=== PATIENT | female | born 1940 | race Caucasian/White ===

== ENCOUNTER 2016-05-13 17:55 | Emergency (ER) | payer OTHER ==
--- NOTE | 2016-05-13 20:04 | ED CLINICAL REPORT ---
Clinical Report - Physicians/Mid Levels [facility] [address] [place] [address] 05/13/2016 17:55 Patient: TERESA YOU Time Seen: 1758. Arrived- By private vehicle. Historian- patient. HISTORY OF PRESENT ILLNESS Chief Complaint: VOMITING. This started about 3 days ago and is still present but is improving. (Pt states that today, she feels stronger, and has been able to hold down food and liquids, though not as much as usual.). Recent travel- [facility] (Pt just moved up from [place].). She has had nausea and vomiting. No diarrhea, black stools, bloody stools, abdominal pain or constipation. No flank pain, history of possible bad food exposure or known contact with a sick individual. Has not recently been camping or on antibiotics. The illness is described as moderate. (Pt states she moved here from [place] to be near her brother. Pt is renting a room in a house with other people. She states that she normally walks with a walker without difficulty, though yesterday, she had more trouble getting up, because she felt dizzy. She states that today is better. Pt states she sleeps in a recliner, and that a chair with a lift to help her get up will be arriving soon. She states her landlady is also a paid caregiver, and that the landlord also has an mailing machine assistant.). Similar symptoms previously: Occasionally. Recent medical care: ( PT is scheduled to establish care with Dr. Bahena.). Not recently seen/assessed. REVIEW OF SYSTEMS No fever, muscle aches, difficulty with urination, dark urine or headache. No dizziness, sore throat, cough, chest pain or difficulty breathing. No excessive urination, jaundice, back pain, fainting episodes or blurred vision. The patient has had skin rash (Pt has a sore, erythematous area on her R leg.). All systems otherwise negative, except as recorded above. PAST HISTORY Problems: Arrhythmia. Cancer. Asthma. Diverticulitis. Gastroesophageal Reflux Disease. Additional Surgeries: Cardiac Surgery. Lumpectomy of breast. Medications: D55-Xphvum Oral 1000 mcg, Daily. Symbicort Inhalation (Aerosol 160-4.5 mcg/act) 2 puff, two times a day. Warfarin Sodium Oral 4 mg, tablets (1.5 tab on Wednesday 1 Tab Wednesday 1.5 Tab Wednesday 1 Tab 1.5 Tab Wednesday 1 Tab Wednesday 1 Tab Wednesday ). Senna Oral, daily as needed. LORazepam Oral 0.5 mg, daily. Sertraline HCl Oral 50 mg, daily. OLANZapine Oral 2.5 mg, daily. Oxycodone-Acetaminophen Oral 10/325 mg, two tabs every 4 hours as needed. Ranexa Oral 500mg, two times a day. Atorvastatin Calcium Oral 10 mg, 2x a day. Docusate Sodium Oral (Capsule 250 mg) 1 capsule, daily. Metoprolol Tartrate Oral 25 mg, Daily (1/2 tab daily). Folic Acid Oral 1 mg, daily. Amiodarone HCL Oral 200 mg, daily. Donepezil HCl Oral 10mg, Daily. Multi Complete Oral 1 tab, Daily (MVI D3). NIFEdipine Oral 30 mg, daily. Allergies: Sulfa Antibiotics. SOCIAL HISTORY Former smoker. No alcohol use or drug use. ADDITIONAL NOTES The nursing notes have been reviewed. PHYSICAL EXAM Vital Signs: 05/13/2016 18:00 BP: 174/70. HR: 85. RR: 15. O2 saturation: 98%. Temp: 98.4 F. Pain level now: 10/10. Have been reviewed. Appearance: Alert. Oriented X3. No acute distress. Eyes: Pupils equal, round and reactive to light. Eyes normal inspection. ENT: Nose normal. Neck: Normal inspection. CVS: Normal heart rate and rhythm. Heart sounds normal. Pulses normal. Respiratory: No respiratory distress. Breath sounds normal. Abdomen: Soft and nontender. Back: Normal inspection. No CVA tenderness. Skin: Skin warm and dry. No rash. Normal skin turgor. (Erythema, as noted above; otherwise unremarkable.). Extremities: Extremities exhibit normal ROM. (Slight LE edema bilaterally. Pt has a 6 cm patch of erythema on her anterior R lower leg, just superior to the ankle.). Neuro: Oriented X 3. No motor deficit. No sensory deficit. LABS, X-RAYS, AND EKG Laboratory Tests: UA-Culture if indicated: (JANEEN: 05/13/2016 18:34) ( [facility] Final results Test Result Flag Units (Reference) URINE COLOR YELLOW URINE APPEARANCE CLEAR URINE GLUCOSE NEGATIVE (NEGATIVE) URINE BILIRUBIN NEGATIVE (NEGATIVE) URINE KETONE NEGATIVE (NEGATIVE) URINE SPECIFIC GRAVITY 1.025 (1.010-1.030) URINE PH 6.0 (5.0-8.0) URINE PROTEIN 1+ (NEGATIVE) URINE UROBILINOGEN 0.2 EU/dL (0.2-1.0) URINE NITRITE NEGATIVE (NEGATIVE) URINE BLOOD NEGATIVE (NEGATIVE) URINE LEUK ESTERASE NEGATIVE (NEGATIVE) URINE RBC NONE SEEN rbc/hpf (0-1) URINE WBC 0-1 wbc/hpf (0-1) URINE EPITHELIAL CELLS 0-1 EPI/hpf (0-5) URINE BACTERIA NONE SEEN (NONE SEEN) URINE COMMENT CULT NOT INDICATED URINE CULTURES ARE SET-UP BASED ON THE FOLLOWING CRITERIA:POSITIVE NITRITEPOSITIVE LEUKOCYTE ESTERASEGREATER THAN 10 WHITE BLOOD CELLSMODERATE (2+) OR GREATER BACTERIA CBC w Diff: (JANEEN: 05/13/2016 18:20) ( [facility]35) Final results Test Result Flag Units (Reference) WHITE BLOOD COUNT 12.0 H K/uL (4.5-11.5) RED BLOOD COUNT 4.25 M/uL (4.00-5.20) HEMOGLOBIN 11.6 L gm/dL (12.0-16.0) HEMATOCRIT 36.2 % (36.0-46.0) MEAN CELL VOLUME 85 fL (80-100) MEAN CORPUSCULAR HGB 27 pg (26-34) MEAN CORPUSCULAR HGB CONC 32 g/dL (31-37) RED CELL DISTRIBUTION WIDTH 14.9 H % (11.6-14.8) PLATELET COUNT 340 K/uL (150-400) NEUTROPHIL % 70.1 % (50-75) LYMPH % 14.7 L % (25-40) MONO % 9.4 % (3-14) EOSINOPHIL % 5.7 H % (0-4) BASOPHIL % 0.1 % (0-2) CMP: (JANEEN: 05/13/2016 18:20) ( [facility] 05/13/2016 18:48) Final results Test Result Flag Units (Reference) GLUCOSE 105 mg/dL (70-110) BUN 26 H mg/dL (7-18) CREATININE 1.2 mg/dL (0.6-1.3) Estimated GFR 46.55 mL/min Estimated GFR- 56.42 mL/min Note: Persistent reduction over 3 months in eGFR<60 mL/min/1.73 m2 defines CKD. Patients with eGFR values>=60 mL/min/1.73 m2 may also have CKD if evidence ofpersistent proteinuria. Additional information may be foundat www.kidney.org. SODIUM 142 mmol/L (136-145) POTASSIUM 5.0 mmol/L (3.5-5.1) CHLORIDE 105 mmol/L (98-107) CARBON DIOXIDE 31 mmol/L (21-32) CALCIUM 9.0 mg/dL (8.5-10.1) TOTAL PROTEIN 6.3 L g/dL (6.4-8.2) ALBUMIN 3.4 g/dL (3.3-5.0) BILIRUBIN, TOTAL 0.4 mg/dL (0.0-1.0) ALKALINE PHOSPHATASE 98 U/L (46-116) AST (SGOT) 27 U/L (15-37) ALT (SGPT) 20 U/L (12-78) . Pulse Oximetry: 05/13/2016 18:00 O2 saturation: 98%. (FIO2 - room air). Interpretation: normal. PROGRESS AND PROCEDURES Course of Care: Pt was quite well-appearing, and was able to transfer to the bedside commode without difficulty and without assistance. Her work-up was negative, and pt was treated for her small cellulitis with abx in the ED. pt was feeling quite a bit better today than on the preceding 2 days. Staff did discuss with pt's yifan on several occasions that pt is doing well, labs look good, and no emergent condition or condition warranting admission is evident. Yifan states she will come "when she has time", and wanted to know why we couldn't just keep the pt in the hospital to make her better. Yifan understands that the rental agreement between her and the pt is a private transaction, and whether the pt is a good fit for her house is not an issue that is within the hospital's scope of management. Patient counseled in person regarding the patient's stable condition, test results, diagnosis and need for follow-up. Concerns were addressed. Old medical records reviewed. Disposition: Discharged. Condition: stable and improved. CLINICAL IMPRESSION Vomiting with nausea. Cellulitis of the right lower leg. INSTRUCTIONS Drink plenty of fluids. Warnings: GENERAL WARNINGS: Return or contact your physician immediately if your condition worsens or changes unexpectedly, if not improving as expected, or if other problems arise. Your Current Medications: CONTINUE TAKING THE FOLLOWING MEDICATIONS: Amiodarone HCL Oral : 200 mg daily. Atorvastatin Calcium Oral : 10 mg 2x a day. Y94-[id number] Oral : 1000 mcg Daily. Docusate Sodium Oral : Capsule 250 mg, 1 capsule daily. Donepezil HCl Oral : 10mg Daily. Folic Acid Oral : 1 mg daily. LORazepam Oral : 0.5 mg daily. Metoprolol Tartrate Oral : 25 mg Daily, 1/2 tab daily. Multi Complete Oral : 1 tab Daily, MVI D3. NIFEdipine Oral : 30 mg daily. OLANZapine Oral : 2.5 mg daily. Oxycodone-Acetaminophen Oral : 10/325 mg two tabs every 4 hours, prn. Ranexa Oral : 500mg two times a day. Senna Oral : daily, prn. Sertraline HCl Oral : 50 mg daily. Symbicort Inhalation : Aerosol 160-4.5 mcg/act, 2 puff two times a day. Warfarin Sodium Oral : 4 mg tablets, 1.5 tab on Wednesday 1 Tab Wednesday 1.5 Tab Wednesday 1 Tab 1.5 Tab Wednesday 1 Tab Wednesday 1 Tab Wednesday. Prescription Medications: Zofran (orally disintegrating tablets) 4 mg: take 1-2 orally every 6 hours as needed for nausea. Dispense fifteen (15). No refill. Substitution is permissible. Cephalexin 500 mg: take 1 capsule orally every 6 hours for 7 days. No refill. Doxycycline 100 mg: Take 1 capsule orally every 12 hours for 7 days. No refill. Understanding of the discharge instructions verbalized by patient. Follow-up with: Warren Bahena MD, Family Practice, , [address] [place] [address], [id number] Follow up. Call for the next available appointment. Reason for referral: Establish care. (Electronically signed by Katherine Torres MD 05/15/2016 10:27)
--- NOTE | 2016-05-13 20:04 | ED NURSING NOTES ---
Clinical Report - Nurses [facility] [place] [address] 05/13/2016 17:55 [id number] Triage time 18:00. Acuity: LEVEL 4. Chief Complaint: (vomiting). 18:16 05/13/16. Alert. No acute distress. SEPSIS SCREEN: Sepsis Screen. Negative (no infection suspected/documented). ARLE[place] COMA SCORE: [place] Coma Scale: 15- eyes open spontaneously (4); best verbal response- oriented x 4 (5); best motor response- obeys commands (6). --18:16 Vernell Matos R.N. 18:00 05/13/16. BP: 174/70. HR: 85. RR: 15 (unlabored). O2 saturation: 98% on room air. Temp: 98.4 F. Pain level now: 12/22. Additional comments: pt states she has severe arm pain. --18:16 Vernell Matos R.N. 18:25 05/13/16. --18:25 Vernell Matos R.N. Acuity: LEVEL 3. --19:12 Vernell Matos R.N. Weight: 124.7 kg stated. Height/Length: 67 inches Per Patient. BMI: 43.1. --18:20 Vernell Matos R.N. Medications NIFEdipine Oral 30 mg, daily. --18:05 Greyson Cardenas R.N. Multi Complete Oral 1 tab, Daily (MVI D3). --18:05 Greyson Cardenas R.N. Donepezil HCl Oral 10mg, Daily. --18:07 Greyson Cardenas R.N. Amiodarone HCL Oral 200 mg, daily. --18:07 Greyson Cardenas R.N. Folic Acid Oral 1 mg, daily. --18:07 Greyson Cardenas R.N. Metoprolol Tartrate Oral 25 mg, Daily (1/2 tab daily). --18:07 Greyson Cardenas R.N. Docusate Sodium Oral (Capsule 250 mg) 1 capsule, daily. --18:07 Greyson Cardenas R.N. Atorvastatin Calcium Oral 10 mg, 2x a day. --18:08 Greyson Cardenas R.N. Ranexa Oral 500mg, two times a day. --18:08 Greyson Cardenas R.N. Oxycodone-Acetaminophen Oral 10/325 mg, two tabs every 4 hours as needed. --18:08 Greyson Cardenas R.N. OLANZapine Oral 2.5 mg, daily. --18:09 Greyson Cardenas R.N. Sertraline HCl Oral 50 mg, daily. --18:09 Greyson Cardenas R.N. LORazepam Oral 0.5 mg, daily. --18:09 Greyson Cardenas R.N. Senna Oral, daily as needed. --18:09 Greyson Cardenas R.N. Warfarin Sodium Oral 4 mg, tablets (1.5 tab on Wednesday 1 Tab Wednesday 1.5 Tab Wednesday 1 Tab 1.5 Tab Wednesday 1 Tab Wednesday 1 Tab Wednesday ). --18:10 Greyson Cardenas R.N. Symbicort Inhalation (Aerosol 160-4.5 mcg/act) 2 puff, two times a day. --18:10 Greyson Cardenas R.N. B37-Dgpcql Oral 1000 mcg, Daily. --18:49 Greyson Cardenas R.N. The following entry was struck and corrected by Greyson Cardenas R.N., 18:58 (05/13/16) Reason for correction - other(correction). <<STRICKEN ENTRY-- Symbicort Inhalation. --18:10 Vernell Matos R.N. --END STRIKE>> The following entry was struck and corrected by Greyson Cardenas R.N., 18:57 (05/13/16) Reason for correction - other(correction). <<STRICKEN ENTRY-- Warfarin Sodium Oral. --18:10 Vernell Matos R.N. --END STRIKE>> The following entry was struck and corrected by Greyson Cardenas R.N., 18:55 (05/13/16) Reason for correction - other(correction). <<[facility] ENTRY-- Senna Oral. --18:09 Vernell Matos R.N. --END STRIKE>> The following entry was struck and corrected by Greyson Cardenas R.N., 18:55 (05/13/16) Reason for correction - other(correction). <<[facility] ENTRY-- LORazepam Oral. --18:09 Vernell Matos R.N. --END STRIKE>> The following entry was struck and corrected by Greyson Cardenas R.N., 18:54 (05/13/16) Reason for correction - other(correction). <<[facility] ENTRY-- Sertraline HCl Oral. --18:09 Vernell Matos R.N. --END STRIKE>> The following entry was struck and corrected by Greyson Cardenas R.N., 18:54 (05/13/16) Reason for correction - other(correction). <<[facility] ENTRY-- OLANZapine Oral. --18:09 Vernell Matos R.N. --END STRIKE>> The following entry was struck and corrected by Greyson Cardenas R.N., 18:54 (05/13/16) Reason for correction - other(correction). <<[facility] ENTRY-- Oxycodone-Acetaminophen Oral. --18:08 Vernell Matos R.N. --END STRIKE>> The following entry was struck and corrected by Greyson Cardenas R.N., 18:52 (05/13/16) Reason for correction - other(correction). <<[facility] ENTRY-- Ranexa Oral. --18:08 Vernell Matos R.N. --END STRIKE>> The following entry was struck and corrected by Greyson Cardenas R.N., 18:51 (05/13/16) Reason for correction - other(correction). <<[facility] ENTRY-- Metoprolol Tartrate Oral 25 mg, Daily. --18:07 Greyson Cardenas R.N. --END STRIKE>> The following entry was struck and corrected by Greyson Cardenas R.N., 18:51 (05/13/16) Reason for correction - other(correction). <<[facility] ENTRY-- Atorvastatin Calcium Oral. --18:08 Vernell Matos R.N. --END STRIKE>> The following entry was struck and corrected by Greyson Cardenas R.N., 18:51 (05/13/16) Reason for correction - other(correction). <<[facility] ENTRY-- Docusate Sodium Oral. --18:07 Vernell Matos R.N. --END STRIKE>> The following entry was struck and corrected by Greyson Cardenas R.N., 18:50 (05/13/16) Reason for correction - other(correction). <<[facility] ENTRY-- Metoprolol Tartrate Oral. --18:07 Vernell Matos R.N. --END STRIKE>> The following entry was struck and corrected by Greyson Cardenas R.N., 18:50 (05/13/16) Reason for correction - other(correction). <<[facility] ENTRY-- Folic Acid Oral. --18:07 Vernell Matos R.N. --END STRIKE>> The following entry was struck and corrected by Greyson Cardenas R.N., 18:50 (05/13/16) Reason for correction - other(correction). <<[facility] ENTRY-- Amiodarone HCL Oral. --18:07 Vernell Matos R.N. --END STRIKE>> The following entry was struck and corrected by Greyson Cardenas R.N., 18:49 (05/13/16) Reason for correction - other(correction). <<[facility] ENTRY-- Donepezil HCl Oral. --18:07 Vernell Matos R.N. --END STRIKE>> The following entry was struck and corrected by Greyson Cardenas R.N., 18:48 (05/13/16) Reason for correction - other(correction). <<STRICKEN ENTRY-- Multi Complete Oral. --18:05 Vernell Matos R.N. --END STRIKE>> The following entry was struck and corrected by Greyson Cardenas R.N., 18:47 (05/13/16) Reason for correction - other(correction). <<STRICKEN ENTRY-- NIFEdipine Oral. --18:05 Vernell Matos R.N. --END STRIKE>>. Allergies Sulfa Antibiotics. --18:11 Vernell Matos R.N. History Historian: patient. Onset. (3 days ago). ( pt states she hasn't vomited today). She has had chest congestion. ( generalized weakness). PAST MEDICAL HX: Immunizations: up-to-date. Denies current . SOCIAL HX: Former smoker, end date 1976. No alcohol use or drug use. FALL RISK ASSESSMENT: Fall risk assessment completed. No fall risk identified. NUTRITIONAL RISK ASSESSMENT: The nutritional risk assessment revealed no deficiencies. FUNCTIONAL ASSESSMENT: Functional assessment: no impairments noted. LEARNING NEEDS ASSESSMENT: The learning needs assessment revealed no barriers. SKIN INTEGRITY ASSESSMENT: Skin integrity risk assessment completed. No skin integrity risk identified. --18:16 Vernell Matos R.N. Treatment LICENSE CLERK: EMS treatment LICENSE CLERK verbally communicated. BP: 156 / 92. HR: 76. RR: 16. Temp: 98.9. O2 saturation: 95. ( glucose 108. EMS reports that the 911 call was for difficulty breathing, but pt did not seem SOB upon EMS arrival. EMS reports the pt's landlord stated she was febrile and unable to ambulate. EMS reports pt is able to self transfer.). ARLETH COMA SCORE: [place] Coma Scale: 15- eyes open spontaneously (4); best verbal response- oriented x 4 (5); best motor response- obeys commands (6). --18:25 Vernell Matos R.N. PROBLEMS: Arrhythmia. Chest Pain of GI Origin. Cancer. Asthma. Diverticulitis. Gastroesophageal Reflux Disease. --18:03 Vernell Matos R.N. ADDITIONAL SURGERIES: Cardiac Surgery. Lumpectomy of breast. --18:04 Vernell Matos R.N. Interventions ID band on patient. To treatment room. --18:16 Vernell Matos R.N. PHYSICAL ASSESSMENT 18:18 05/13/16. GENERAL / NEURO / PSYCH: Alert. Oriented X 4. Appears in no acute distress. RESPIRATORY: Respirations not labored. Cough. Wheezing present. ( pt has productive sounding cough. breath sounds wheezy.). GI / : No decreased urination. --18:18 Vernell Matos R.N. NURSING PROGRESS NOTES 18:19 05/13/2016 Site #1 started via IV in the left hand with an 22g angiocath; two attempts. Blood drawn: rainbow set. Labeled in the presence of the patient and sent to the lab. Saline lock flushed with saline. --18:19 Vernell Matos R.N. 18:21 05/13/16. Blood samples drawn. Two patient identifiers checked. Call light placed in reach. Side rails up x 1. Patient informed about reason for wait and about plan of care. --18:21 Vernell Matos R.N. 18:42 05/13/16. Patient ID band checked for patient name and birthdate: patient confirmed. Patient verbalized understanding. Catheterized urine collected with return of yellow-colored clear urine; odor is normal; sample sent to lab for culture. Specimen labeled in the presence of the patient. --18:42 Vernell Matos R.N. 18:43 05/13/16. 8 fr in/out catheterization. During procedure hand hygiene observed and sterile equipment and aseptic technique used. Return of yellow-colored clear urine; odor is normal. She tolerated procedure well. --18:43 Vernell Matos R.N. 18:54 05/13/2016 Started bag #1 1000 mL IV Fluids IV NS (Saline); bolus of 1000 mL over 1 hour(s) via site #1. Allergies verified and confirmed 5 rights. IV patency established. IV site checked: no pain, redness, or swelling. IV flushed thoroughly pre- and post-medication administration. Completed per protocol. --18:54 Vernell Matos R.N. 18:55 05/13/2016 Zofran (Ondansetron HCl) IVP 8 mg given over 4 minute(s) via site #1. Allergies verified and confirmed 5 rights. IV patency established. IV site checked: no pain, redness, or swelling. IV flushed thoroughly pre- and post-medication administration. IVP given by RN. --19:00 Vernell Matos R.N. 19:11 05/13/16. Care transferred and report given (Sejal Cantrell RN). --19:11 Vernell Matos R.N. ( Patient landlorramu called to speak to charge nurse. Writing RN spoke yifan. Initially Yifan called and suggested the patient needed to stay in the hospital and that she was in poor health. Yifan called a second time and was informed that the patient was up for discharge. Yifan stated, "We will need help getting the patient back into the home, we need to borrow a wheelchair". Writing RN told yifan that we are unable to lend out our wheelchair. Patient reports she has a wheelchair and walker at home. "So you guys are just discharging her and dumping her in the lobby? We hate your hospital. I want the names of everyone who took care of her. We wont be coming back." Writing RN spoke to primary RN. Patient was informed of discharge planning and patient acute care registered nurse contact information. Patient encouraged to see PCP to address health concerns and possibly obtain resources for at home assistance as needed. Patient understands discharge instruction and has no complaints at this time.). --20:37 Josefa Mustafa 20:49 05/13/2016 Site #1 removed upon discharge. Catheter intact. Bandaid applied. --20:49 Josefa Mustafa 21:05 05/13/16. BP: 150/70. HR: 64. RR: 18. O2 saturation: 95% on room air. 20:35 05/13/16. BP: 156/63. HR: 78. RR: 20. O2 saturation: 95% on room air. 19:44 05/13/16. BP: 158/78. HR: 65. RR: 18. O2 saturation: 95%. Pain level now: 04/24. --21:06 Sejal Broussard R.N. 20:00. ( Patient assisted up to and back to bed from the [facility]. Tolerated well, patient required only standby assistance.). --21:11 Sejal Broussard R.N. ( Patient states she has help at home, with medication and getting to the bathroom. She states she has a walker and wheelchair.). --21:20 Sejal Broussard R.N. 20:56 05/13/2016 Keflex (Cephalexin) PO 500 mg given. Allergies verified and confirmed 5 rights. --21:21 Sejal Broussard R.N. 20:56 05/13/2016 DOXYCYCLINE MONOHYDRATE PO 100 mg given. Allergies verified and confirmed 5 rights. --21:21 Sejal Broussard R.N. DISPOSITION / DISCHARGE 22:30. Condition at departure: improved. No learning barriers present. Reviewed medication(s) side effects, precautions, dosing and course information. Prescription(s) given to the patient. Patient verbalized understanding. Written instructions provided in [place]. The patient was discharged home and accompanied by welfare director. She left the Emergency Department in a wheelchair and via private vehicle. [employer] Supervisor driving. Medication list reviewed and validated. --22:44 Sejal Broussard R.N. 22:30 05/13/16. BP: 145/70. HR: 63. RR: 20. O2 saturation: 96% on room air. Temp: 98.7 F. Pain level now: 04/24. 21:05 05/13/16. BP: 150/70. HR: 64. RR: 18. O2 saturation: 95% on room air. 20:35 05/13/16. BP: 156/63. HR: 78. RR: 20. O2 saturation: 95% on room air. 19:44 05/13/16. BP: 158/78. HR: 65. RR: 18. O2 saturation: 95%. Pain level now: 04/24. 18:00 05/13/16. BP: 174/70. HR: 85. RR: 15 (unlabored). O2 saturation: 98% on room air. Temp: 98.4 F. Pain level now: 12/22. Additional comments: pt states she has severe arm pain. --22:44 Sejal Broussard R.N. Locked/Released at 05/13/2016 22:44 by Sejal Broussard R.N.
--- NOTE | 2016-05-13 20:04 | ED NURSING NOTES ---
Clinical Report - Nurses [facility] [place] [address] 05/13/2016 17:55 [id number] Triage time 18:00. Acuity: LEVEL 4. Chief Complaint: (vomiting). 18:16 05/13/16. Alert. No acute distress. SEPSIS SCREEN: Sepsis Screen. Negative (no infection suspected/documented). ARLETH COMA SCORE: [place] Coma Scale: 15- eyes open spontaneously (4); best verbal response- oriented x 4 (5); best motor response- obeys commands (6). --18:16 Vernell Matos R.N. 18:00 05/13/16. BP: 174/70. HR: 85. RR: 15 (unlabored). O2 saturation: 98% on room air. Temp: 98.4 F. Pain level now: 12/22. Additional comments: pt states she has severe arm pain. --18:16 Vernell Matos R.N. 18:25 05/13/16. --18:25 Vernell Matos R.N. Acuity: LEVEL 3. --19:12 Vernell Matos R.N. Weight: 124.7 kg stated. Height/Length: 67 inches Per Patient. BMI: 43.1. --18:20 Vernell Matos R.N. Medications NIFEdipine Oral 30 mg, daily. --18:05 Greyson Cardenas R.N. Multi Complete Oral 1 tab, Daily (MVI D3). --18:05 Greyson Cardenas R.N. Donepezil HCl Oral 10mg, Daily. --18:07 Greyson Cardenas R.N. Amiodarone HCL Oral 200 mg, daily. --18:07 Greyson Cardenas R.N. Folic Acid Oral 1 mg, daily. --18:07 Greyson Cardenas R.N. Metoprolol Tartrate Oral 25 mg, Daily (1/2 tab daily). --18:07 Greyson Cardenas R.N. Docusate Sodium Oral (Capsule 250 mg) 1 capsule, daily. --18:07 Greyson Cardenas R.N. Atorvastatin Calcium Oral 10 mg, 2x a day. --18:08 Greyson Cardenas R.N. Ranexa Oral 500mg, two times a day. --18:08 Greyson Cardenas R.N. Oxycodone-Acetaminophen Oral 10/325 mg, two tabs every 4 hours as needed. --18:08 Greyson Cardenas R.N. OLANZapine Oral 2.5 mg, daily. --18:09 Greyson Cardenas R.N. Sertraline HCl Oral 50 mg, daily. --18:09 Greyson Cardenas R.N. LORazepam Oral 0.5 mg, daily. --18:09 Greyson Cardenas R.N. Senna Oral, daily as needed. --18:09 Greyson Cardenas R.N. Warfarin Sodium Oral 4 mg, tablets (1.5 tab on Wednesday 1 Tab Wednesday 1.5 Tab Wednesday 1 Tab 1.5 Tab Wednesday 1 Tab Wednesday 1 Tab Wednesday ). --18:10 Greyson Cardenas R.N. Symbicort Inhalation (Aerosol 160-4.5 mcg/act) 2 puff, two times a day. --18:10 Greyson Cardenas R.N. U83-Bwylaf Oral 1000 mcg, Daily. --18:49 Greyson Cardenas R.N. The following entry was struck and corrected by Greyson Cardenas R.N., 18:58 (05/13/16) Reason for correction - other(correction). <<STRICKEN ENTRY-- Symbicort Inhalation. --18:10 Vernell Matos R.N. --END STRIKE>> The following entry was struck and corrected by Greyson Cardenas R.N., 18:57 (05/13/16) Reason for correction - other(correction). <<STRICKEN ENTRY-- Warfarin Sodium Oral. --18:10 Vernell Matos R.N. --END STRIKE>> The following entry was struck and corrected by Greyson Cardenas R.N., 18:55 (05/13/16) Reason for correction - other(correction). <<[facility] ENTRY-- Senna Oral. --18:09 Vernell Matos R.N. --END STRIKE>> The following entry was struck and corrected by Greyson Cardenas R.N., 18:55 (05/13/16) Reason for correction - other(correction). <<[facility] ENTRY-- LORazepam Oral. --18:09 Vernell Matos R.N. --END STRIKE>> The following entry was struck and corrected by Greyson Cardenas R.N., 18:54 (05/13/16) Reason for correction - other(correction). <<[facility] ENTRY-- Sertraline HCl Oral. --18:09 Vernell Matos R.N. --END STRIKE>> The following entry was struck and corrected by Greyson Cardenas R.N., 18:54 (05/13/16) Reason for correction - other(correction). <<[facility] ENTRY-- OLANZapine Oral. --18:09 Vernell Matos R.N. --END STRIKE>> The following entry was struck and corrected by Greyson Cardenas R.N., 18:54 (05/13/16) Reason for correction - other(correction). <<[facility] ENTRY-- Oxycodone-Acetaminophen Oral. --18:08 Vernell Matos R.N. --END STRIKE>> The following entry was struck and corrected by Greyson Cardenas R.N., 18:52 (05/13/16) Reason for correction - other(correction). <<[facility] ENTRY-- Ranexa Oral. --18:08 Vernell Matos R.N. --END STRIKE>> The following entry was struck and corrected by Greyson Cardenas R.N., 18:51 (05/13/16) Reason for correction - other(correction). <<[facility] ENTRY-- Metoprolol Tartrate Oral 25 mg, Daily. --18:07 Greyson Cardenas R.N. --END STRIKE>> The following entry was struck and corrected by Greyson Cardenas R.N., 18:51 (05/13/16) Reason for correction - other(correction). <<[facility] ENTRY-- Atorvastatin Calcium Oral. --18:08 Vernell Matos R.N. --END STRIKE>> The following entry was struck and corrected by Greyson Cardenas R.N., 18:51 (05/13/16) Reason for correction - other(correction). <<[facility] ENTRY-- Docusate Sodium Oral. --18:07 Vernell Matos R.N. --END STRIKE>> The following entry was struck and corrected by Greyson Cardenas R.N., 18:50 (05/13/16) Reason for correction - other(correction). <<[facility] ENTRY-- Metoprolol Tartrate Oral. --18:07 Vernell Matos R.N. --END STRIKE>> The following entry was struck and corrected by Greyson Cardenas R.N., 18:50 (05/13/16) Reason for correction - other(correction). <<[facility] ENTRY-- Folic Acid Oral. --18:07 Vernell Matos R.N. --END STRIKE>> The following entry was struck and corrected by Greyson Cardenas R.N., 18:50 (05/13/16) Reason for correction - other(correction). <<[facility] ENTRY-- Amiodarone HCL Oral. --18:07 Vernell Matos R.N. --END STRIKE>> The following entry was struck and corrected by Greyson Cardenas R.N., 18:49 (05/13/16) Reason for correction - other(correction). <<[facility] ENTRY-- Donepezil HCl Oral. --18:07 Vernell Matos R.N. --END STRIKE>> The following entry was struck and corrected by Greyson Cardenas R.N., 18:48 (05/13/16) Reason for correction - other(correction). <<STRICKEN ENTRY-- Multi Complete Oral. --18:05 Vernell Matos R.N. --END STRIKE>> The following entry was struck and corrected by Greyson Cardenas R.N., 18:47 (05/13/16) Reason for correction - other(correction). <<STRICKEN ENTRY-- NIFEdipine Oral. --18:05 Vernell Matos R.N. --END STRIKE>>. Allergies Sulfa Antibiotics. --18:11 Vernell Matos R.N. History Historian: patient. Onset. (3 days ago). ( pt states she hasn't vomited today). She has had chest congestion. ( generalized weakness). PAST MEDICAL HX: Immunizations: up-to-date. Denies current . SOCIAL HX: Former smoker, end date 1976. No alcohol use or drug use. FALL RISK ASSESSMENT: Fall risk assessment completed. No fall risk identified. NUTRITIONAL RISK ASSESSMENT: The nutritional risk assessment revealed no deficiencies. FUNCTIONAL ASSESSMENT: Functional assessment: no impairments noted. LEARNING NEEDS ASSESSMENT: The learning needs assessment revealed no barriers. SKIN INTEGRITY ASSESSMENT: Skin integrity risk assessment completed. No skin integrity risk identified. --18:16 Vernell Matos R.N. Treatment DRILL FOREMAN: EMS treatment DRILL FOREMAN verbally communicated. BP: 156 / 92. HR: 76. RR: 16. Temp: 98.9. O2 saturation: 95. ( glucose 108. EMS reports that the 911 call was for difficulty breathing, but pt did not seem SOB upon EMS arrival. EMS reports the pt's landlord stated she was febrile and unable to ambulate. EMS reports pt is able to self transfer.). ARLETH COMA SCORE: [facility] Coma Scale: 15- eyes open spontaneously (4); best verbal response- oriented x 4 (5); best motor response- obeys commands (6). --18:25 Vernell Matos R.N. PROBLEMS: Arrhythmia. Chest Pain of GI Origin. Cancer. Asthma. Diverticulitis. Gastroesophageal Reflux Disease. --18:03 Vernell Matos R.N. ADDITIONAL SURGERIES: Cardiac Surgery. Lumpectomy of breast. --18:04 Vernell Matos R.N. Interventions ID band on patient. To treatment room. --18:16 Vernell Matos R.N. PHYSICAL ASSESSMENT 18:18 05/13/16. GENERAL / NEURO / PSYCH: Alert. Oriented X 4. Appears in no acute distress. RESPIRATORY: Respirations not labored. Cough. Wheezing present. ( pt has productive sounding cough. breath sounds wheezy.). GI / : No decreased urination. --18:18 Vernell Matos R.N. NURSING PROGRESS NOTES 18:19 05/13/2016 Site #1 started via IV in the left hand with an 22g angiocath; two attempts. Blood drawn: rainbow set. Labeled in the presence of the patient and sent to the lab. Saline lock flushed with saline. --18:19 Vernell Matos R.N. 18:21 05/13/16. Blood samples drawn. Two patient identifiers checked. Call light placed in reach. Side rails up x 1. Patient informed about reason for wait and about plan of care. --18:21 Vernell Matos R.N. 18:42 05/13/16. Patient ID band checked for patient name and birthdate: patient confirmed. Patient verbalized understanding. Catheterized urine collected with return of yellow-colored clear urine; odor is normal; sample sent to lab for culture. Specimen labeled in the presence of the patient. --18:42 Vernell Matos R.N. 18:43 05/13/16. 8 fr in/out catheterization. During procedure hand hygiene observed and sterile equipment and aseptic technique used. Return of yellow-colored clear urine; odor is normal. She tolerated procedure well. --18:43 Vernell Matos R.N. 18:54 05/13/2016 Started bag #1 1000 mL IV Fluids IV NS (Saline); bolus of 1000 mL over 1 hour(s) via site #1. Allergies verified and confirmed 5 rights. IV patency established. IV site checked: no pain, redness, or swelling. IV flushed thoroughly pre- and post-medication administration. Completed per protocol. --18:54 Vernell Matos R.N. 18:55 05/13/2016 Zofran (Ondansetron HCl) IVP 8 mg given over 4 minute(s) via site #1. Allergies verified and confirmed 5 rights. IV patency established. IV site checked: no pain, redness, or swelling. IV flushed thoroughly pre- and post-medication administration. IVP given by RN. --19:00 Vernell Matos R.N. 19:11 05/13/16. Care transferred and report given (Sejal Cantrell RN). --19:11 Vernell Matos R.N. ( Patient landlorramu called to speak to charge nurse. Writing RN spoke yifan. Initially Yifan called and suggested the patient needed to stay in the hospital and that she was in poor health. Yifan called a second time and was informed that the patient was up for discharge. Yifan stated, "We will need help getting the patient back into the home, we need to borrow a wheelchair". Writing RN told yifan that we are unable to lend out our wheelchair. Patient reports she has a wheelchair and walker at home. "So you guys are just discharging her and dumping her in the lobby? We hate your hospital. I want the names of everyone who took care of her. We wont be coming back." Writing RN spoke to primary RN. Patient was informed of discharge planning and patient medication care manager contact information. Patient encouraged to see PCP to address health concerns and possibly obtain resources for at home assistance as needed. Patient understands discharge instruction and has no complaints at this time.). --20:37 Josefa Mustafa 20:49 05/13/2016 Site #1 removed upon discharge. Catheter intact. Bandaid applied. --20:49 Josefa Mustafa 21:05 05/13/16. BP: 150/70. HR: 64. RR: 18. O2 saturation: 95% on room air. 20:35 05/13/16. BP: 156/63. HR: 78. RR: 20. O2 saturation: 95% on room air. 19:44 05/13/16. BP: 158/78. HR: 65. RR: 18. O2 saturation: 95%. Pain level now: 04/24. --21:06 Sejal Broussard R.N. 20:00. ( Patient assisted up to and back to bed from [facility]. Tolerated well, patient required only standby assistance.). --21:11 Sejal Broussard R.N. ( Patient states she has help at home, with medication and getting to the bathroom. She states she has a walker and wheelchair.). --21:20 Sejal Broussard R.N. 20:56 05/13/2016 Keflex (Cephalexin) PO 500 mg given. Allergies verified and confirmed 5 rights. --21:21 Sejal Broussard R.N. 20:56 05/13/2016 DOXYCYCLINE MONOHYDRATE PO 100 mg given. Allergies verified and confirmed 5 rights. --21:21 Sejal Broussard R.N. DISPOSITION / DISCHARGE 22:30. Condition at departure: improved. No learning barriers present. Reviewed medication(s) side effects, precautions, dosing and course information. Prescription(s) given to the patient. Patient verbalized understanding. Written instructions provided in Cuban. The patient was discharged home and accompanied by jig bore tool maker. She left the Emergency Department in a wheelchair and via private vehicle. Chemical Instrumentation Officer driving. Medication list reviewed and validated. --22:44 Sejal Broussard R.N. 22:30 05/13/16. BP: 145/70. HR: 63. RR: 20. O2 saturation: 96% on room air. Temp: 98.7 F. Pain level now: 04/24. 21:05 05/13/16. BP: 150/70. HR: 64. RR: 18. O2 saturation: 95% on room air. 20:35 05/13/16. BP: 156/63. HR: 78. RR: 20. O2 saturation: 95% on room air. 19:44 05/13/16. BP: 158/78. HR: 65. RR: 18. O2 saturation: 95%. Pain level now: 04/24. 18:00 05/13/16. BP: 174/70. HR: 85. RR: 15 (unlabored). O2 saturation: 98% on room air. Temp: 98.4 F. Pain level now: 12/22. Additional comments: pt states she has severe arm pain. --22:44 Sejal Broussard R.N. Locked/Released at 05/13/2016 22:44 by Sejal Broussard R.N.
--- NOTE | 2016-05-13 20:04 | ED ORDER SUMMARY ---
..... Patient: TERESA YOU OrderSheet [facility] VisitID: [id number] [place] [address] 76y, F Registration Date/Time: 05/13/2016 ORDER SHEET Weight: 124.7 kg (stated) Allergies: Sulfa Antibiotics GENERAL ORDERS: CBC w Diff Urgent (18:08 05/13/2016 Alejandra CALDERÓN) (Ack 18:17 Kandace) (20:01 SRoberts R.N.) CMP Urgent (18:05/13/2016 Alejandra CALDERÓN) (Ack 18:17 Kandace) (20:01 SRoberts R.N.) UA-Culture if indicated Urgent (18:05/13/2016 Alejandra CALDERÓN) (Ack 18:17 Kandace) (20:01 SRoberts R.N.) MEDICATION ORDERS: Keflex PO 500 mg (NOW) (19:50 05/13/2016 Alejandra CALDERÓN) (Ack 20:53 SRoberts R.N.) (21:21 SRoberts R.N.) Doxycycline Monohydrate PO 100 mg (NOW) (19:52 05/13/2016 Alejandra CALDERÓN) (Ack 20:53 SRoberts R.N.) (21:21 SRoberts R.N.) IV FLUIDS: IV NS : initial bolus 1000 mL (1000 mL/hr), then none - (NOW) (18:08 05/13/2016 Alejandra CALDERÓN) (Ack 18:46 RMarsden R.N.) (18:54 RMarsden R.N.) Zofran IV 8 mg (NOW) (18:05/13/2016 Alejandra CALDERÓN) (Ack 18:46 RMarsden R.N.) (19:00 RMarsden R.N.) ORDER SHEET NOTES: [Electronically signed by Sejal Broussard R.N. (22:44 05/13/2016)] [Electronically signed by Katherine Torres MD (10:27 05/15/2016)] [Electronically locked/signed by Sejal Broussard R.N. (22:44 05/13/2016)]
--- NOTE | 2016-05-13 20:04 | ED ORDER SUMMARY ---
..... Patient: TERESA YOU OrderSheet [facility] VisitID: [id number] [place] [address] 76y, F Registration Date/Time: 05/13/2016 ORDER SHEET Weight: 124.7 kg (stated) Allergies: Sulfa Antibiotics GENERAL ORDERS: CBC w Diff Urgent (18:08 05/13/2016 Alejandra CALDERÓN) (Ack 18:17 Kandace) (20:01 SRoberts R.N.) CMP Urgent (18:05/13/2016 Alejandra CALDERÓN) (Ack 18:17 Kandace) (20:01 SRoberts R.N.) UA-Culture if indicated Urgent (18:05/13/2016 Alejandra CALDERÓN) (Ack 18:17 Kandace) (20:01 SRoberts R.N.) MEDICATION ORDERS: Keflex PO 500 mg (NOW) (19:50 05/13/2016 Alejandra CALDERÓN) (Ack 20:53 SRoberts R.N.) (21:21 SRoberts R.N.) Doxycycline Monohydrate PO 100 mg (NOW) (19:52 05/13/2016 Alejandra CALDERÓN) (Ack 20:53 SRoberts R.N.) (21:21 SRoberts R.N.) IV FLUIDS: IV NS : initial bolus 1000 mL (1000 mL/hr), then none - (NOW) (18:08 05/13/2016 Alejandra CALDERÓN) (Ack 18:46 RMarsden R.N.) (18:54 RMarsden R.N.) Zofran IV 8 mg (NOW) (18:05/13/2016 Alejandra CALDERÓN) (Ack 18:46 RMarsden R.N.) (19:00 RMarsden R.N.) ORDER SHEET NOTES: [Electronically signed by Sejal Broussard R.N. (22:44 05/13/2016)] [Electronically signed by Katherine Torres MD (10:27 05/15/2016)] [Electronically locked/signed by Sejal Broussard R.N. (22:44 05/13/2016)]
--- NOTE | 2016-05-13 20:04 | ED CLINICAL REPORT ---
Clinical Report - Physicians/Mid Levels [facility] [address] [place] [address] 05/13/2016 17:55 Patient: TERESA YOU Time Seen: 1758. Arrived- By private vehicle. Historian- patient. HISTORY OF PRESENT ILLNESS Chief Complaint: VOMITING. This started about 3 days ago and is still present but is improving. (Pt states that today, she feels stronger, and has been able to hold down food and liquids, though not as much as usual.). Recent travel- [facility] (Pt just moved up from [place].). She has had nausea and vomiting. No diarrhea, black stools, bloody stools, abdominal pain or constipation. No flank pain, history of possible bad food exposure or known contact with a sick individual. Has not recently been camping or on antibiotics. The illness is described as moderate. (Pt states she moved here from [place] to be near her brother. Pt is renting a room in a house with other people. She states that she normally walks with a walker without difficulty, though yesterday, she had more trouble getting up, because she felt dizzy. She states that today is better. Pt states she sleeps in a recliner, and that a chair with a lift to help her get up will be arriving soon. She states her landlady is also a paid caregiver, and that the landlord also has an marketing operations assistant.). Similar symptoms previously: Occasionally. Recent medical care: ( PT is scheduled to establish care with Dr. Bahena.). Not recently seen/assessed. REVIEW OF SYSTEMS No fever, muscle aches, difficulty with urination, dark urine or headache. No dizziness, sore throat, cough, chest pain or difficulty breathing. No excessive urination, jaundice, back pain, fainting episodes or blurred vision. The patient has had skin rash (Pt has a sore, erythematous area on her R leg.). All systems otherwise negative, except as recorded above. PAST HISTORY Problems: Arrhythmia. Cancer. Asthma. Diverticulitis. Gastroesophageal Reflux Disease. Additional Surgeries: Cardiac Surgery. Lumpectomy of breast. Medications: Y77-Lscigo Oral 1000 mcg, Daily. Symbicort Inhalation (Aerosol 160-4.5 mcg/act) 2 puff, two times a day. Warfarin Sodium Oral 4 mg, tablets (1.5 tab on Wednesday 1 Tab Wednesday 1.5 Tab Wednesday 1 Tab 1.5 Tab Wednesday 1 Tab Wednesday 1 Tab Wednesday ). Senna Oral, daily as needed. LORazepam Oral 0.5 mg, daily. Sertraline HCl Oral 50 mg, daily. OLANZapine Oral 2.5 mg, daily. Oxycodone-Acetaminophen Oral 10/325 mg, two tabs every 4 hours as needed. Ranexa Oral 500mg, two times a day. Atorvastatin Calcium Oral 10 mg, 2x a day. Docusate Sodium Oral (Capsule 250 mg) 1 capsule, daily. Metoprolol Tartrate Oral 25 mg, Daily (1/2 tab daily). Folic Acid Oral 1 mg, daily. Amiodarone HCL Oral 200 mg, daily. Donepezil HCl Oral 10mg, Daily. Multi Complete Oral 1 tab, Daily (MVI D3). NIFEdipine Oral 30 mg, daily. Allergies: Sulfa Antibiotics. SOCIAL HISTORY Former smoker. No alcohol use or drug use. ADDITIONAL NOTES The nursing notes have been reviewed. PHYSICAL EXAM Vital Signs: 05/13/2016 18:00 BP: 174/70. HR: 85. RR: 15. O2 saturation: 98%. Temp: 98.4 F. Pain level now: 10/10. Have been reviewed. Appearance: Alert. Oriented X3. No acute distress. Eyes: Pupils equal, round and reactive to light. Eyes normal inspection. ENT: Nose normal. Neck: Normal inspection. CVS: Normal heart rate and rhythm. Heart sounds normal. Pulses normal. Respiratory: No respiratory distress. Breath sounds normal. Abdomen: Soft and nontender. Back: Normal inspection. No CVA tenderness. Skin: Skin warm and dry. No rash. Normal skin turgor. (Erythema, as noted above; otherwise unremarkable.). Extremities: Extremities exhibit normal ROM. (Slight LE edema bilaterally. Pt has a 6 cm patch of erythema on her anterior R lower leg, just superior to the ankle.). Neuro: Oriented X 3. No motor deficit. No sensory deficit. LABS, X-RAYS, AND EKG Laboratory Tests: UA-Culture if indicated: (JANEEN: 05/13/2016 18:34) ( [place] [facility] [place] 18:55) Final results Test Result Flag Units (Reference) URINE COLOR YELLOW URINE APPEARANCE CLEAR URINE GLUCOSE NEGATIVE (NEGATIVE) URINE BILIRUBIN NEGATIVE (NEGATIVE) URINE KETONE NEGATIVE (NEGATIVE) URINE SPECIFIC GRAVITY 1.025 (1.010-1.030) URINE PH 6.0 (5.0-8.0) URINE PROTEIN 1+ (NEGATIVE) URINE UROBILINOGEN 0.2 EU/dL (0.2-1.0) URINE NITRITE NEGATIVE (NEGATIVE) URINE BLOOD NEGATIVE (NEGATIVE) URINE LEUK ESTERASE NEGATIVE (NEGATIVE) URINE RBC NONE SEEN rbc/hpf (0-1) URINE WBC 0-1 wbc/hpf (0-1) URINE EPITHELIAL CELLS 0-1 EPI/hpf (0-5) URINE BACTERIA NONE SEEN (NONE SEEN) URINE COMMENT CULT NOT INDICATED URINE CULTURES ARE SET-UP BASED ON THE FOLLOWING CRITERIA:POSITIVE NITRITEPOSITIVE LEUKOCYTE ESTERASEGREATER THAN 10 WHITE BLOOD CELLSMODERATE (2+) OR GREATER BACTERIA CBC w Diff: (JANEEN: 05/13/2016 18:20) ( [place] [facility] [place] 05/13/2016 18:35) Final results Test Result Flag Units (Reference) WHITE BLOOD COUNT 12.0 H K/uL (4.5-11.5) RED BLOOD COUNT 4.25 M/uL (4.00-5.20) HEMOGLOBIN 11.6 L gm/dL (12.0-16.0) HEMATOCRIT 36.2 % (36.0-46.0) MEAN CELL VOLUME 85 fL (80-100) MEAN CORPUSCULAR HGB 27 pg (26-34) MEAN CORPUSCULAR HGB CONC 32 g/dL (31-37) RED CELL DISTRIBUTION WIDTH 14.9 H % (11.6-14.8) PLATELET COUNT 340 K/uL (150-400) NEUTROPHIL % 70.1 % (50-75) LYMPH % 14.7 L % (25-40) MONO % 9.4 % (3-14) EOSINOPHIL % 5.7 H % (0-4) BASOPHIL % 0.1 % (0-2) CMP: (JANEEN: 05/13/2016 18:20) ( [facility] 05/13/2016 18:48) Final results Test Result Flag Units (Reference) GLUCOSE 105 mg/dL (70-110) BUN 26 H mg/dL (7-18) CREATININE 1.2 mg/dL (0.6-1.3) Estimated GFR 46.55 mL/min Estimated GFR- 56.42 mL/min Note: Persistent reduction over 3 months in eGFR<60 mL/min/1.73 m2 defines CKD. Patients with eGFR values>=60 mL/min/1.73 m2 may also have CKD if evidence ofpersistent proteinuria. Additional information may be foundat www.kidney.org. SODIUM 142 mmol/L (136-145) POTASSIUM 5.0 mmol/L (3.5-5.1) CHLORIDE 105 mmol/L (98-107) CARBON DIOXIDE 31 mmol/L (21-32) CALCIUM 9.0 mg/dL (8.5-10.1) TOTAL PROTEIN 6.3 L g/dL (6.4-8.2) ALBUMIN 3.4 g/dL (3.3-5.0) BILIRUBIN, TOTAL 0.4 mg/dL (0.0-1.0) ALKALINE PHOSPHATASE 98 U/L (46-116) AST (SGOT) 27 U/L (15-37) ALT (SGPT) 20 U/L (12-78) . Pulse Oximetry: 05/13/2016 18:00 O2 saturation: 98%. (FIO2 - room air). Interpretation: normal. PROGRESS AND PROCEDURES Course of Care: Pt was quite well-appearing, and was able to transfer to the bedside commode without difficulty and without assistance. Her work-up was negative, and pt was treated for her small cellulitis with abx in the ED. pt was feeling quite a bit better today than on the preceding 2 days. Staff did discuss with pt's yifan on several occasions that pt is doing well, labs look good, and no emergent condition or condition warranting admission is evident. Yifan states she will come "when she has time", and wanted to know why we couldn't just keep the pt in the hospital to make her better. Yifan understands that the rental agreement between her and the pt is a private transaction, and whether the pt is a good fit for her house is not an issue that is within the hospital's scope of management. Patient counseled in person regarding the patient's stable condition, test results, diagnosis and need for follow-up. Concerns were addressed. Old medical records reviewed. Disposition: Discharged. Condition: stable and improved. CLINICAL IMPRESSION Vomiting with nausea. Cellulitis of the right lower leg. INSTRUCTIONS Drink plenty of fluids. Warnings: GENERAL WARNINGS: Return or contact your physician immediately if your condition worsens or changes unexpectedly, if not improving as expected, or if other problems arise. Your Current Medications: CONTINUE TAKING THE FOLLOWING MEDICATIONS: Amiodarone HCL Oral : 200 mg daily. Atorvastatin Calcium Oral : 10 mg 2x a day. I47-Srnlea Oral : 1000 mcg Daily. Docusate Sodium Oral : Capsule 250 mg, 1 capsule daily. Donepezil HCl Oral : 10mg Daily. Folic Acid Oral : 1 mg daily. LORazepam Oral : 0.5 mg daily. Metoprolol Tartrate Oral : 25 mg Daily, 1/2 tab daily. Multi Complete Oral : 1 tab Daily, MVI D3. NIFEdipine Oral : 30 mg daily. OLANZapine Oral : 2.5 mg daily. Oxycodone-Acetaminophen Oral : 10/325 mg two tabs every 4 hours, prn. Ranexa Oral : 500mg two times a day. Senna Oral : daily, prn. Sertraline HCl Oral : 50 mg daily. Symbicort Inhalation : Aerosol 160-4.5 mcg/act, 2 puff two times a day. Warfarin Sodium Oral : 4 mg tablets, 1.5 tab on Wednesday 1 Tab Wednesday 1.5 Tab Wednesday 1 Tab 1.5 Tab Wednesday 1 Tab Wednesday 1 Tab Wednesday. Prescription Medications: Zofran (orally disintegrating tablets) 4 mg: take 1-2 orally every 6 hours as needed for nausea. Dispense fifteen (15). No refill. Substitution is permissible. Cephalexin 500 mg: take 1 capsule orally every 6 hours for 7 days. No refill. Doxycycline 100 mg: Take 1 capsule orally every 12 hours for 7 days. No refill. Understanding of the discharge instructions verbalized by patient. Follow-up with: Warren Bahena MD, Family Practice, , [address] [place] [address], [id number] Follow up. Call for the next available appointment. Reason for referral: Establish care. (Electronically signed by Katherine Torres MD 05/15/2016 10:27)
--- NOTE | 2016-05-15 10:27 | ED MAR SUMMARY ---
..... Medication Administration Record [facility] [address] [place] [address] Patient: TERESA YOU Visit ID: [id number] 76y, F Weight: 124.7 kg Height/Length: 67 in BMI: 43.1 ALLERGIES: Sulfa Antibiotics Start 18:54 05/13/2016 Vernell Matos R.N. Medication Administered: IV NS (SALINE), Dose: IV Fluids, Bolus: 1000 mL over 1 hour(s), Dispensed: 1000 mL bag, Site: #1 left hand. Medication Ordered: IV NS : initial bolus 1000 mL (1000 mL/hr), then none - (NOW). Given 18:55 05/13/2016 Vernell Matos R.N. Medication Administered: ZOFRAN [IVP] (ONDANSETRON HCL), Dose: 8 mg IVP over 4 minute(s), Site: #1 left hand. Medication Ordered: Zofran IV 8 mg (NOW). Given 20:56 05/13/2016 Sejal Broussard R.N. Medication Administered: KEFLEX [PO] (CEPHALEXIN), Dose: 500 mg PO. Medication Ordered: Keflex PO 500 mg (NOW). Given 20:56 05/13/2016 Sejal Broussard R.N. Medication Administered: DOXYCYCLINE MONOHYDRATE [PO], Dose: 100 mg PO. Medication Ordered: Doxycycline Monohydrate PO 100 mg (NOW).
--- NOTE | 2016-05-15 10:27 | ED MED RECONCILIATION SUMMARY ---
Patient: TERESA YOU Medication Reconciliation Report [facility] VisitID: [id number] [place] [address] 76y, F Registration Date/Time: 05/13/2016 Weight: 124.7 kg Height/Length: 67 in. BMI: 43.1 ALLERGIES: Sulfa Antibiotics The patient's Home Medications are listed below: CONTINUE TAKING THE FOLLOWING MEDICATIONS: Amiodarone HCL Oral 200 mg, daily Atorvastatin Calcium Oral 10 mg, 2x a day Y51-Ulziaf Oral 1000 mcg, Daily Docusate Sodium Oral (250 mg) 1 capsule, daily Donepezil HCl Oral 10mg, Daily Folic Acid Oral 1 mg, daily LORazepam Oral 0.5 mg, daily Metoprolol Tartrate Oral 25 mg, Daily, 1/2 tab daily Multi Complete Oral 1 tab, Daily, MVI D3 NIFEdipine Oral 30 mg, daily OLANZapine Oral 2.5 mg, daily Oxycodone-Acetaminophen Oral 10/325 mg, two tabs every 4 hours Ranexa Oral 500mg, two times a day Senna Oral, daily Sertraline HCl Oral 50 mg, daily Symbicort Inhalation (160-4.5 mcg/act) 2 puff, two times a day Warfarin Sodium Oral 4 mg, tablets, 1.5 tab on Tab Wednesday1.5 Tab Tab 1.5 Tab Tab Tab Wednesday The source(s) of the original Home Medication information: Not obtained. The following Medications were given to the patient in the Emergency Department: IV NS IV Fluids bolus 1000 mL over 1 hour(s), administered: 05/13/2016 6:54:00 PM Zofran [IVP] IVP 8 mg, administered: 05/13/2016 6:55:00 PM Keflex [PO] PO 500 mg, administered: 05/13/2016 8:56:00 PM DOXYCYCLINE MONOHYDRATE [PO] PO 100 mg, administered: 05/13/2016 8:56:00 PM The following Medications were prescribed to the patient: Zofran (orally disintegrating tablets) 4 mg: take 1-2 orally every 6 hours as needed for nausea. Dispense fifteen (15). No refill. Substitution is permissible. -- Katherine Torres MD Cephalexin 500 mg: take 1 capsule orally every 6 hours for 7 days. No refill. -- Katherine Torres MD Doxycycline 100 mg: Take 1 capsule orally every 12 hours for 7 days. No refill. -- Katherine Torres MD
--- NOTE | 2016-05-15 10:27 | ED MED RECONCILIATION SUMMARY ---
Patient: TERESA YOU Medication Reconciliation Report [facility] VisitID: [id number] [place] [address] 76y, F Registration Date/Time: 05/13/2016 Weight: 124.7 kg Height/Length: 67 in. BMI: 43.1 ALLERGIES: Sulfa Antibiotics The patient's Home Medications are listed below: CONTINUE TAKING THE FOLLOWING MEDICATIONS: Amiodarone HCL Oral 200 mg, daily Atorvastatin Calcium Oral 10 mg, 2x a day V53-Ppeljl Oral 1000 mcg, Daily Docusate Sodium Oral (250 mg) 1 capsule, daily Donepezil HCl Oral 10mg, Daily Folic Acid Oral 1 mg, daily LORazepam Oral 0.5 mg, daily Metoprolol Tartrate Oral 25 mg, Daily, 1/2 tab daily Multi Complete Oral 1 tab, Daily, MVI D3 NIFEdipine Oral 30 mg, daily OLANZapine Oral 2.5 mg, daily Oxycodone-Acetaminophen Oral 10/325 mg, two tabs every 4 hours Ranexa Oral 500mg, two times a day Senna Oral, daily Sertraline HCl Oral 50 mg, daily Symbicort Inhalation (160-4.5 mcg/act) 2 puff, two times a day Warfarin Sodium Oral 4 mg, tablets, 1.5 tab on Tab Wednesday1.5 Tab Tab 1.5 Tab Tab Tab Wednesday The source(s) of the original Home Medication information: Not obtained. The following Medications were given to the patient in the Emergency Department: IV NS IV Fluids bolus 1000 mL over 1 hour(s), administered: 05/13/2016 6:54:00 PM Zofran [IVP] IVP 8 mg, administered: 05/13/2016 6:55:00 PM Keflex [PO] PO 500 mg, administered: 05/13/2016 8:56:00 PM DOXYCYCLINE MONOHYDRATE [PO] PO 100 mg, administered: 05/13/2016 8:56:00 PM The following Medications were prescribed to the patient: Zofran (orally disintegrating tablets) 4 mg: take 1-2 orally every 6 hours as needed for nausea. Dispense fifteen (15). No refill. Substitution is permissible. -- Katherine Torres MD Cephalexin 500 mg: take 1 capsule orally every 6 hours for 7 days. No refill. -- Katherine Torres MD Doxycycline 100 mg: Take 1 capsule orally every 12 hours for 7 days. No refill. -- Katherine Torres MD
--- NOTE | 2016-05-15 10:27 | ED DISCHARGE INSTRUCTIONS ---
Patient: TERESA YOU General Instructions [facility] VisitID: [id number] [address] [place], [place] [id number] 76y, F Registration Date/Time: 05/13/2016 Vomiting with nausea. Cellulitis of the right lower leg. INSTRUCTIONS Drink plenty of fluids. Warnings: GENERAL WARNINGS: Return or contact your physician immediately if your condition worsens or changes unexpectedly, if not improving as expected, or if other problems arise. Your Current Medications: CONTINUE TAKING THE FOLLOWING MEDICATIONS: Amiodarone HCL Oral : 200 mg daily. Atorvastatin Calcium Oral : 10 mg 2x a day. Y70-Qdpgvy Oral : 1000 mcg Daily. Docusate Sodium Oral : Capsule 250 mg, 1 capsule daily. Donepezil HCl Oral : 10mg Daily. Folic Acid Oral : 1 mg daily. LORazepam Oral : 0.5 mg daily. Metoprolol Tartrate Oral : 25 mg Daily, 1/2 tab daily. Multi Complete Oral : 1 tab Daily, MVI D3. NIFEdipine Oral : 30 mg daily. OLANZapine Oral : 2.5 mg daily. Oxycodone-Acetaminophen Oral : 10/325 mg two tabs every 4 hours, prn. Ranexa Oral : 500mg two times a day. Senna Oral : daily, prn. Sertraline HCl Oral : 50 mg daily. Symbicort Inhalation : Aerosol 160-4.5 mcg/act, 2 puff two times a day. Warfarin Sodium Oral : 4 mg tablets, 1.5 tab on Wednesday 1 Tab Wednesday 1.5 Tab Wednesday 1 Tab 1.5 Tab Wednesday 1 Tab Wednesday 1 Tab Wednesday. Prescription Medications: Zofran (orally disintegrating tablets) 4 mg: take 1-2 orally every 6 hours as needed for nausea. Dispense fifteen (15). No refill. Substitution is permissible. Cephalexin 500 mg: take 1 capsule orally every 6 hours for 7 days. No refill. Doxycycline 100 mg: Take 1 capsule orally every 12 hours for 7 days. No refill. Understanding of the discharge instructions verbalized by patient. Follow-up with: Warren Bahena MD, [facility], , [address] [phone] Follow up. Call for the next available appointment. Reason for referral: Establish care. ADDITIONAL INFORMATION Vomiting [6Yr-Adult] Vomiting is a common symptom that may be due to different causes. These include gastroenteritis ("stomach flu"), food poisoning and gastritis. There are other more serious causes of vomiting which may be hard to diagnose early in the illness. Therefore, it is important to watch for the warning signs listed below. The main danger from repeated vomiting is dehydration. This is due to excess loss of water and minerals from the body. When this occurs, body fluids must be replaced. Home Care: If symptoms are severe, rest at home for the next 24 hours. You may use acetaminophen (Tylenol) or ibuprofen (Motrin, Advil) to control fever, unless another medicine was prescribed. [NOTE : If you have chronic liver or kidney disease or ever had a stomach ulcer or GI bleeding, talk with your doctor before using these medicines.] (Aspirin should never be used in anyone under 18 years of age who is ill with a fever. It may cause severe liver damage.) Avoid tobacco and alcohol use, which may worsen your symptoms. If medicines for vomiting were prescribed, take as directed. Once vomiting stops, then follow these guidelines: During The First 12-24 Hours follow the diet below: FRUIT JUICES: Apple, grape juice, clear fruit drinks, and electrolyte replacement drinks. BEVERAGES: Soft drinks without caffeine; mineral water (plain or flavored), decaffeinated tea and coffee. SOUPS: Clear broth, consomm and bouillon DESSERTS: Plain gelatin, popsicles and fruit juice bars. As you feel better, you may add 6-8 ounces of yogurt per day. During The Next 24 Hours you may add the following to the above: Hot cereal, plain toast, bread, rolls, crackers Plain noodles, rice, mashed potatoes, chicken noodle or rice soup Unsweetened canned fruit (avoid pineapple), bananas Limit caffeine and chocolate. No spices or seasonings except salt. During The Next 24 Hours Gradually resume a normal diet, as you feel better and your symptoms lessen. Follow Up with your doctor as advised if you are not improving over the next 2-3 days. Get Prompt Medical Attention if any of the following occur: Constant right-sided lower abdominal pain or increasing general abdominal pain Continued vomiting (unable to keep liquids down) for 24 hours Frequent diarrhea (more than 5 times a day); blood (red or black color) or mucus in diarrhea Reduced urine output or extreme thirst Weakness, dizziness or fainting Unusually drowsy or confused Fever of 100.4F (38C) oral or higher, not better with fever medication Yellow color of the eyes or skin Cellulitis You have an infection of the skin known as cellulitis. This usually starts with a scrape, cut, insect bite, blister or other opening in the skin which becomes infected. This is a serious condition. It must be watched closely to be sure the infection is not spreading. With antibiotic treatment, the size of the red area will gradually shrink in size until the skin returns to normal. This will take 7-10 days. The red area should never increase in size once the antibiotic medicine has been started. Occasionally, an infection will be resistant to one antibiotic and another one will have to be used. Home Care: 1) Limit the use of the affected part, since excess movement can cause the infection to spread. 2) If the infection is on your leg, walk as little as possible during the first few days of the treatment. Keep your leg elevated while sitting. This will reduce swelling. 3) Take all of the antibiotic medicine exactly as directed until it is gone. Be careful not to miss any doses, especially during the first seven days. Follow Up with your doctor or this facility as directed. Check the infected area daily for the warning signs listed below. Get Prompt Medical Attention if any of the following occur: -- Spreading area of redness -- Increasing swelling or pain -- Appearance of pus or drainage -- Fever over 100.4 F (38.0 C) oral, or over 101.4 F (38.6 C) rectal, after two days on antibiotics You have been given the following additional information: Vomiting (6Y-Adult) Cellulitis (Electronically signed by Katherine Torres MD 05/15/2016 10:27)
--- NOTE | 2016-05-15 10:27 | ED MAR SUMMARY ---
..... Medication Administration Record [facility] [address] [place] [address] Patient: TERESA YOU Visit ID: [id number] 76y, F Weight: 124.7 kg Height/Length: 67 in BMI: 43.1 ALLERGIES: Sulfa Antibiotics Start 18:54 05/13/2016 Vernell Matos R.N. Medication Administered: IV NS (SALINE), Dose: IV Fluids, Bolus: 1000 mL over 1 hour(s), Dispensed: 1000 mL bag, Site: #1 left hand. Medication Ordered: IV NS : initial bolus 1000 mL (1000 mL/hr), then none - (NOW). Given 18:55 05/13/2016 Vernell Matos R.N. Medication Administered: ZOFRAN [IVP] (ONDANSETRON HCL), Dose: 8 mg IVP over 4 minute(s), Site: #1 left hand. Medication Ordered: Zofran IV 8 mg (NOW). Given 20:56 05/13/2016 Sejal Broussard R.N. Medication Administered: KEFLEX [PO] (CEPHALEXIN), Dose: 500 mg PO. Medication Ordered: Keflex PO 500 mg (NOW). Given 20:56 05/13/2016 Sejal Broussard R.N. Medication Administered: DOXYCYCLINE MONOHYDRATE [PO], Dose: 100 mg PO. Medication Ordered: Doxycycline Monohydrate PO 100 mg (NOW).
== END 2016-05-13 22:30 | disposition home or self-care (01) ==
LOC: ED SRH 17:55
DX: R11.2 Nausea with vomiting, unspecified (principal); L03.115 Cellulitis of right lower limb; K21.9 Gastro-esophageal reflux disease without esophagitis; J45.909 Unspecified asthma, uncomplicated; Z79.52 Long term (current) use of systemic steroids; Z79.891 Long term (current) use of opiate analgesic; Z79.899 Other long term (current) drug therapy; Z87.891 Personal history of nicotine dependence; Z88.2 Allergy status to sulfonamides
CPT/HCPCS: 90004; 90100; 95059

== ENCOUNTER 2016-08-27 16:14 | Emergency (ER) | payer OTHER ==
--- NOTE | 2016-08-27 17:42 | ED NURSING NOTES ---
Clinical Report - Nurses [facility] [address] [place] [address] 08/27/2016 16:14 Patient: TERESA YOU TRIAGE Triage time 16:26. Acuity: LEVEL 3. Chief Complaint: NAUSEA and VOMITING. Alert. --16:30 Lachelle Fang R.N. 16:26 08/27/16. BP: 152/57. HR: 65. RR: 18. O2 saturation: 94%. Temp: 97.9 F. Pain level now: 0/10. Additional comments: "some pressure in my chest". --16:30 Lachelle Fang R.N. Weight: 124.7 kg stated. Height/Length: 67.5 inches Per Patient. BMI: 42.4. --16:29 Lachelle Fang R.N. Medications Amiodarone HCL Oral 200 mg, daily. Atorvastatin Calcium Oral 10 mg, 2x a day. R74-[id number] Oral 1000 mcg, Daily. Docusate Sodium Oral (Capsule 250 mg) 1 capsule, daily. Donepezil HCl Oral 10mg, Daily. Folic Acid Oral 1 mg, daily. LORazepam Oral 0.5 mg, daily. Metoprolol Tartrate Oral 25 mg, Daily (1/2 tab daily). Multi Complete Oral 1 tab, Daily (MVI D3). NIFEdipine Oral 30 mg, daily. OLANZapine Oral 2.5 mg, daily. Oxycodone-Acetaminophen Oral 10/325 mg, two tabs every 4 hours as needed. Ranexa Oral 500mg, two times a day. Senna Oral, daily as needed. Sertraline HCl Oral 50 mg, daily. Symbicort Inhalation (Aerosol 160-4.5 mcg/act) 2 puff, two times a day. --16:27 Lachelle Fang R.N. Warfarin Sodium Oral 4 mg, tablets (1.5 tab on Wednesday 1 Tab Wednesday 1.5 Tab Wednesday 1 Tab 1.5 Tab Wednesday 1 Tab Wednesday 1 Tab Wednesday ). --16:27 Lachelle Fang R.N. Allergies Sulfa Antibiotics. --16:27 Lachelle Fang R.N. History Arrived by EMS. Historian: EMS and patient. Primary physician (Josef). Onset. (2 days ago). SOCIAL HX: Smoker- current status unknown. No alcohol use or drug use. No infectious disease exposure. ABUSE ASSESSMENT: Abuse assessment: ("yes") The patient was asked "Do you feel safe in your home?". --16:30 Lachelle Fang R.N. PROBLEMS: Cellulitis. Vomiting. Arrhythmia. Chest Pain of GI Origin. Cancer. Asthma. Diverticulitis. Gastroesophageal Reflux Disease. --16:27 Lachelle Fang R.N. ADDITIONAL SURGERIES: Cardiac Surgery. Lumpectomy of breast. --16:27 Lachelle Fang R.N. Interventions ID band on patient. To room. --16:30 Lachelle Fang R.N. PHYSICAL ASSESSMENT 16:30 08/27/16. GENERAL / NEURO / PSYCH: Alert. Oriented X 4. --16:30 Lachelle Fang R.N. NURSING PROGRESS NOTES Patient identifiers checked. Call light placed in reach. Bed placed in lowest position. Patient ready for evaluation. --16:30 Lachelle Fang R.N. 16:49 08/27/2016 Site #1 started via IV in the left hand with an 22g angiocath, with aseptic technique and good blood return; two attempts. Blood drawn: rainbow set. Labeled in the presence of the patient and sent to the lab. Saline lock flushed with 10 mL saline. --16:55 Lachelle Fang R.N. 16:55 08/27/2016 Started bag #1 1000 mL IV Fluids IV NS (Saline); at 1000 mL/hr via site #1. Confirmed 5 rights. --16:55 Lachelle Fang R.N. 16:55 08/27/2016 Zofran (Ondansetron HCl) IVP 4 mg given over 2 minute(s) via site #1. Confirmed 5 rights. --16:55 Lachelle Fang R.N. 17:22 08/27/16. Assisted patient to bathroom, to ambulate and back to bed; tolerated well (with walker). --17:22 Lachelle Fang R.N. 17:30 08/27/16. ( Unable to use urine sample obtained, pt put toilet paper in it.). --17:30 Lachelle Fang R.N. ( IVF's placed on pump at 999mls/hr). --17:36 Lachelle Fang R.N. ( Pt states she vomited six times today). --17:44 Lachelle Fang R.N. 18:13 08/27/2016 IV Fluids IV NS Discontinued: bag #1 completed. Total amount infused: 1000 mL. --18:18 Lachelle Fang R.N. 18:15 08/27/2016 Site #1 removed. Catheter intact. Bandage applied. --18:19 Lachelle Fang R.N. DISPOSITION / DISCHARGE Condition at departure: improved. ( Pt states her brother was asking about discharge planning for her. FUMIGATOR AND STERILIZER transferred call to RN supervisor vat house to perhaps get some phone numbers for them.). No learning barriers present. Reviewed medication(s) information. Prescription(s) given to the patient. Reviewed referral to family practice for followup. Verbalized understanding. Written instructions provided. --18:18 Lachelle Fang R.N. 18:15 08/27/16. BP: 154/76. HR: 65. RR: 18. O2 saturation: 95%. Temp: 98.1 F. Pain level now: 0/10. --18:18 Lachelle Fang R.N. Locked/Released at 09/04/2016 9:18 by Lachelle Fang R.N.
--- NOTE | 2016-08-27 17:42 | ED ORDER SUMMARY ---
..... Patient: TERESA YOU OrderSheet [facility] VisitID: [id number] [address] [place] [address] 76y, F Registration Date/Time: 08/27/2016 ORDER SHEET Weight: 124.7 kg (stated) Allergies: Sulfa Antibiotics GENERAL ORDERS: CBC w Diff Urgent (16:53 08/27/2016 HBivens A.R.N.P.) (Ack 17:11 KHoerner) (17:44 LSullivan R.N.) CMP Urgent (16:53 08/27/2016 HBivens A.R.N.P.) (Ack 17:11 KHoerner) (17:44 LSullivan R.N.) UA-Culture if indicated Urgent (16:53 08/27/2016 HBivens A.R.N.P.) (Ack 17:11 KHoerner) (Cancelled: Physician Order9:18 LSullivan R.N.) Amylase Urgent (16:53 08/27/2016 HBivens A.R.N.P.) (Ack 17:11 KHoerner) (17:44 LSullivan R.N.) Lipase Urgent (16:53 08/27/2016 HBivens A.R.N.P.) (Ack 17:11 KHoerner) (17:44 LSullivan R.N.) MEDICATION ORDERS: IV FLUIDS: IV NS : initial bolus 1000 mL (1000 mL/hr), then none - (NOW) (16:53 08/27/2016 HBivens A.R.N.P.) (16:55 LSullivan R.N.) Zofran IV 4 mg (NOW) (16:53 08/27/2016 HBivens A.R.N.P.) (16:55 LSullivan R.N.) IV Saline Lock (16:53 08/27/2016 HBivens A.R.N.P.) (16:55 LSullivan R.N.) ORDER SHEET NOTES: [Electronically signed by Merry Nash A.R.N.P. (21:33 08/27/2016)] [Electronically signed by Lachelle Fang R.N. (09/04/2016)] [Electronically locked/signed by Lachelle Fang R.N. (09/04/2016)]
--- NOTE | 2016-08-27 17:42 | ED CLINICAL REPORT ---
Clinical Report - Physicians/Mid Levels [facility] [address] [place] [address] 08/27/2016 16:14 Patient: TERESA YOU Time Seen: 16:42; initial patient contact, initial documentation, patient care assumed. Arrived- By ambulance. Historian- patient. HISTORY OF PRESENT ILLNESS Chief Complaint: VOMITING. This started about 2 days ago and is still present. It was abrupt in onset and has been constant. No recent travel. She has had nausea and mild, constant abdominal pain. The pain is described as generalized. She has had moderate vomiting. The vomiting has occurred several times and has been bilious. No feculent emesis, blood-tinged emesis, coffee-grounds emesis, frankly bloody emesis or unusually dark emesis. No diarrhea, black stools, bloody stools, constipation or flank pain. No history of possible bad food exposure, known contact with a sick individual or change in routine. Has not recently been camping or on antibiotics. The illness is described as moderate. Similar symptoms previously: None. Recent medical care: Not recently seen/assessed. REVIEW OF SYSTEMS No fever, difficulty with urination, dark urine, chest pain or difficulty breathing. All systems otherwise negative, except as recorded above. PAST HISTORY See nurses notes. PROBLEMS: Cellulitis. Vomiting. Arrhythmia. Chest Pain of GI Origin. Cancer. Asthma. Diverticulitis. Gastroesophageal Reflux Disease. --16:27 Lachelle Fang RChristoph. ADDITIONAL SURGERIES: Cardiac Surgery. Lumpectomy of breast. --16:27 Lachelle Fang RChristoph. SOCIAL HISTORY Never smoker. No alcohol use or drug use. Is a local resident. FAMILY HISTORY Negative. ADDITIONAL NOTES The nursing notes have been reviewed with agreement regarding the chief complaint, HPI, ROS, PMH and patient medications and allergies. PHYSICAL EXAM Vital Signs: 08/27/2016 16:26 BP: 152/57. HR: 65. RR: 18. O2 saturation: 94%. Temp: 97.9 F. Pain level now: 0/10. Have been reviewed as normal and appear to be correct. Appearance: Alert. Oriented X3. No acute distress. Eyes: Pupils equal, round and reactive to light. Eyes normal inspection. Neck: Normal inspection. Neck supple. CVS: Normal heart rate and rhythm. Heart sounds normal. Pulses normal. Respiratory: No respiratory distress. Breath sounds normal. Abdomen: Soft and nontender. Bowel sounds normal. No organomegaly. No mass. Mildly obese. Back: Normal inspection. Skin: Skin warm and dry. Normal skin color. No rash. Normal skin turgor. Extremities: Extremities exhibit normal ROM. No lower extremity edema. Neuro: Oriented X 3. No motor deficit. No sensory deficit. LABS, X-RAYS, AND EKG Laboratory Tests: CBC w Diff: (JANEEN: 08/27/2016 16:40) ( VtgRcvd 08/27/2016 17:02) Final results Test Result Flag Units (Reference) WHITE BLOOD COUNT 10.1 K/uL (4.5-11.5) RED BLOOD COUNT 4.40 M/uL (4.00-5.20) HEMOGLOBIN 12.2 gm/dL (12.0-16.0) HEMATOCRIT 38.2 % (36.0-46.0) MEAN CELL VOLUME 87 fL (80-100) MEAN CORPUSCULAR HGB 28 pg (26-34) MEAN CORPUSCULAR HGB CONC 32 g/dL (31-37) RED CELL DISTRIBUTION WIDTH 14.4 % (11.6-14.8) PLATELET COUNT 319 K/uL (150-400) NEUTROPHIL % 83.4 H % (50-75) LYMPH % 11.4 L % (25-40) MONO % 4.4 % (3-14) EOSINOPHIL % 0.4 % (0-4) BASOPHIL % 0.4 % (0-2) CMP: (JANEEN: 08/27/2016 16:40) ( MsgRcvd 08/27/2016 17:19) Final results Test Result Flag Units (Reference) GLUCOSE 154 H mg/dL (70-110) BUN 20 H mg/dL (7-18) CREATININE 1.5 H mg/dL (0.6-1.3) Estimated GFR 35.98 mL/min Estimated GFR- 43.61 mL/min Note: Persistent reduction over 3 months in eGFR<60 mL/min/1.73 m2 defines CKD. Patients with eGFR values>=60 mL/min/1.73 m2 may also have CKD if evidence ofpersistent proteinuria. Additional information may be foundat www.kidney.org. SODIUM 135 L mmol/L (136-145) POTASSIUM 4.3 mmol/L (3.5-5.1) CHLORIDE 98 mmol/L (98-107) CARBON DIOXIDE 33 H mmol/L (21-32) CALCIUM 8.7 mg/dL (8.5-10.1) TOTAL PROTEIN 6.8 g/dL (6.4-8.2) ALBUMIN 3.5 g/dL (3.3-5.0) BILIRUBIN, TOTAL 0.4 mg/dL (0.0-1.0) ALKALINE PHOSPHATASE 94 U/L (46-116) AST (SGOT) 15 U/L (15-37) ALT (SGPT) 19 U/L (12-78) LIPASE 94 U/L (73-393) AMYLASE 47 U/L (25-115) . PROGRESS AND PROCEDURES Course of Care: 16:53 08/27/16. pt has yazan for frequent large amounts of narcs, last rx 08/04 oxycodone 10mg #120 and #30 ativan, see report for full details. Patient counseled in person regarding the patient's stable condition, test results and diagnosis. 17:41. Differential Diagnosis: I considered gastritis, peptic ulcer disease, gastroesophageal reflux disease, gastroparesis, Crohn's disease, ulcerative colitis, small bowel obstruction, gastric outlet obstruction, colonic obstruction, colon cancer, gastroenteritis, cholecystitis, pancreatitis, viral syndrome, enterocolitis, urinary tract infection, hepatitis and drugs as a possible cause of vomiting in this patient. This is a partial list of diagnoses considered. Above considerations are based on history and physical exam. Differential diagnosis was discussed with patient. Disposition: Discharged home in good and improved condition (17:41). Condition: good and stable. CLINICAL IMPRESSION Intractable and bilious vomiting with nausea. No dehydration or volume depletion. INSTRUCTIONS Take clear liquids only (frequent sips) for the next 24 hours until better. May continue medications with sips only. Advance diet as tolerated. Avoid. Warnings: GENERAL WARNINGS: Return or contact your physician immediately if your condition worsens or changes unexpectedly, if not improving as expected, or if other problems arise. SPECIFICALLY, return if you develop pain in the abdomen or pelvis, fever, the inability to keep fluids down, blood in vomitus, blood in diarrhea, fainting or lightheadedness. Prescription Medications: Zofran 4 mg: Take 1 orally every six hours as needed for nausea/vomiting. Dispense ten (10). No refills. Substitution is permissible. Follow-up: Follow up with your doctor in about two days even if well. Call for an appointment. Understanding of the discharge instructions verbalized by patient. (Electronically signed by Merry Nash A.R.N.P. 08/27/2016 21:33)
--- NOTE | 2016-08-27 17:42 | ED ORDER SUMMARY ---
..... Patient: TERESA YOU OrderSheet [facility] VisitID: [id number] [address] [place] [address] 76y, F Registration Date/Time: 08/27/2016 ORDER SHEET Weight: 124.7 kg (stated) Allergies: Sulfa Antibiotics GENERAL ORDERS: CBC w Diff Urgent (16:53 08/27/2016 HBivens A.R.N.P.) (Ack 17:11 KHoerner) (17:44 LSullivan R.N.) CMP Urgent (16:53 08/27/2016 HBivens A.R.N.P.) (Ack 17:11 KHoerner) (17:44 LSullivan R.N.) UA-Culture if indicated Urgent (16:53 08/27/2016 HBivens A.R.N.P.) (Ack 17:11 KHoerner) (Cancelled: Physician Order9:18 LSullivan R.N.) Amylase Urgent (16:53 08/27/2016 HBivens A.R.N.P.) (Ack 17:11 KHoerner) (17:44 LSullivan R.N.) Lipase Urgent (16:53 08/27/2016 HBivens A.R.N.P.) (Ack 17:11 KHoerner) (17:44 LSullivan R.N.) MEDICATION ORDERS: IV FLUIDS: IV NS : initial bolus 1000 mL (1000 mL/hr), then none - (NOW) (16:53 08/27/2016 HBivens A.R.N.P.) (16:55 LSullivan R.N.) Zofran IV 4 mg (NOW) (16:53 08/27/2016 HBivens A.R.N.P.) (16:55 LSullivan R.N.) IV Saline Lock (16:53 08/27/2016 HBivens A.R.N.P.) (16:55 LSullivan R.N.) ORDER SHEET NOTES: [Electronically signed by Merry Nash A.R.N.P. (21:33 08/27/2016)] [Electronically signed by Lachelle Fang R.N. (09/04/2016)] [Electronically locked/signed by Lachelle Fang R.N. (09/04/2016)]
--- NOTE | 2016-08-27 17:42 | ED NURSING NOTES ---
Clinical Report - Nurses [facility] [address] [place] [address] 08/27/2016 16:14 Patient: TERESA YOU TRIAGE Triage time 16:26. Acuity: LEVEL 3. Chief Complaint: NAUSEA and VOMITING. Alert. --16:30 Lachelle Fang R.N. 16:26 08/27/16. BP: 152/57. HR: 65. RR: 18. O2 saturation: 94%. Temp: 97.9 F. Pain level now: 0/10. Additional comments: "some pressure in my chest". --16:30 Lachelle Fang R.N. Weight: 124.7 kg stated. Height/Length: 67.5 inches Per Patient. BMI: 42.4. --16:29 Lachelle Fang R.N. Medications Amiodarone HCL Oral 200 mg, daily. Atorvastatin Calcium Oral 10 mg, 2x a day. Q92-[id number] Oral 1000 mcg, Daily. Docusate Sodium Oral (Capsule 250 mg) 1 capsule, daily. Donepezil HCl Oral 10mg, Daily. Folic Acid Oral 1 mg, daily. LORazepam Oral 0.5 mg, daily. Metoprolol Tartrate Oral 25 mg, Daily (1/2 tab daily). Multi Complete Oral 1 tab, Daily (MVI D3). NIFEdipine Oral 30 mg, daily. OLANZapine Oral 2.5 mg, daily. Oxycodone-Acetaminophen Oral 10/325 mg, two tabs every 4 hours as needed. Ranexa Oral 500mg, two times a day. Senna Oral, daily as needed. Sertraline HCl Oral 50 mg, daily. Symbicort Inhalation (Aerosol 160-4.5 mcg/act) 2 puff, two times a day. --16:27 Lachelle Fang R.N. Warfarin Sodium Oral 4 mg, tablets (1.5 tab on Wednesday 1 Tab Wednesday 1.5 Tab Wednesday 1 Tab 1.5 Tab Wednesday 1 Tab Wednesday 1 Tab Wednesday ). --16:27 Lachelle Fang R.N. Allergies Sulfa Antibiotics. --16:27 Lachelle Fang R.N. History Arrived by EMS. Historian: EMS and patient. Primary physician (Josef). Onset. (2 days ago). SOCIAL HX: Smoker- current status unknown. No alcohol use or drug use. No infectious disease exposure. ABUSE ASSESSMENT: Abuse assessment: ("yes") The patient was asked "Do you feel safe in your home?". --16:30 Lachelle Fang R.N. PROBLEMS: Cellulitis. Vomiting. Arrhythmia. Chest Pain of GI Origin. Cancer. Asthma. Diverticulitis. Gastroesophageal Reflux Disease. --16:27 Lachelle Fang R.N. ADDITIONAL SURGERIES: Cardiac Surgery. Lumpectomy of breast. --16:27 Lachelle Fang R.N. Interventions ID band on patient. To room. --16:30 Lachelle Fang R.N. PHYSICAL ASSESSMENT 16:30 08/27/16. GENERAL / NEURO / PSYCH: Alert. Oriented X 4. --16:30 Lachelle Fang R.N. NURSING PROGRESS NOTES Patient identifiers checked. Call light placed in reach. Bed placed in lowest position. Patient ready for evaluation. --16:30 Lachelle Fang R.N. 16:49 08/27/2016 Site #1 started via IV in the left hand with an 22g angiocath, with aseptic technique and good blood return; two attempts. Blood drawn: rainbow set. Labeled in the presence of the patient and sent to the lab. Saline lock flushed with 10 mL saline. --16:55 Lachelle Fang R.N. 16:55 08/27/2016 Started bag #1 1000 mL IV Fluids IV NS (Saline); at 1000 mL/hr via site #1. Confirmed 5 rights. --16:55 Lachelle Fang R.N. 16:55 08/27/2016 Zofran (Ondansetron HCl) IVP 4 mg given over 2 minute(s) via site #1. Confirmed 5 rights. --16:55 Lachelle Fang R.N. 17:22 08/27/16. Assisted patient to bathroom, to ambulate and back to bed; tolerated well (with walker). --17:22 Lachelle Fang R.N. 17:30 08/27/16. ( Unable to use urine sample obtained, pt put toilet paper in it.). --17:30 Lachelle Fang R.N. ( IVF's placed on pump at 999mls/hr). --17:36 Lachelle Fang R.N. ( Pt states she vomited six times today). --17:44 Lachelle Fang R.N. 18:13 08/27/2016 IV Fluids IV NS Discontinued: bag #1 completed. Total amount infused: 1000 mL. --18:18 Lachelle Fang R.N. 18:15 08/27/2016 Site #1 removed. Catheter intact. Bandage applied. --18:19 Lachelle Fang R.N. DISPOSITION / DISCHARGE Condition at departure: improved. ( Pt states her brother was asking about discharge planning for her. CHIEF MECHANICAL OFFICER transferred call to RN gate supervisor to perhaps get some phone numbers for them.). No learning barriers present. Reviewed medication(s) information. Prescription(s) given to the patient. Reviewed referral to family practice for followup. Verbalized understanding. Written instructions provided. --18:18 Lachelle Fang R.N. 18:15 08/27/16. BP: 154/76. HR: 65. RR: 18. O2 saturation: 95%. Temp: 98.1 F. Pain level now: 0/10. --18:18 Lachelle Fang R.N. Locked/Released at 09/04/2016 9:18 by Lachelle Fang R.N.
--- NOTE | 2016-09-04 09:19 | ED DISCHARGE INSTRUCTIONS ---
Patient: TERESA YOU General Instructions [facility] VisitID: [id number] [place] [address] 76y, F Registration Date/Time: 08/27/2016 Intractable and bilious vomiting with nausea. No dehydration or volume depletion. INSTRUCTIONS Take clear liquids only (frequent sips) for the next 24 hours until better. May continue medications with sips only. Advance diet as tolerated. Avoid. Warnings: GENERAL WARNINGS: Return or contact your physician immediately if your condition worsens or changes unexpectedly, if not improving as expected, or if other problems arise. SPECIFICALLY, return if you develop pain in the abdomen or pelvis, fever, the inability to keep fluids down, blood in vomitus, blood in diarrhea, fainting or lightheadedness. Prescription Medications: Zofran 4 mg: Take 1 orally every six hours as needed for nausea/vomiting. Dispense ten (10). No refills. Substitution is permissible. Follow-up: Follow up with your doctor in about two days even if well. Call for an appointment. Understanding of the discharge instructions verbalized by patient. ADDITIONAL INFORMATION Vomiting [6Yr-Adult] Vomiting is a common symptom that may be due to different causes. These include gastroenteritis ("stomach flu"), food poisoning and gastritis. There are other more serious causes of vomiting which may be hard to diagnose early in the illness. Therefore, it is important to watch for the warning signs listed below. The main danger from repeated vomiting is dehydration. This is due to excess loss of water and minerals from the body. When this occurs, body fluids must be replaced. Home Care: If symptoms are severe, rest at home for the next 24 hours. You may use acetaminophen (Tylenol) or ibuprofen (Motrin, Advil) to control fever, unless another medicine was prescribed. [NOTE : If you have chronic liver or kidney disease or ever had a stomach ulcer or GI bleeding, talk with your doctor before using these medicines.] (Aspirin should never be used in anyone under 18 years of age who is ill with a fever. It may cause severe liver damage.) Avoid tobacco and alcohol use, which may worsen your symptoms. If medicines for vomiting were prescribed, take as directed. Once vomiting stops, then follow these guidelines: During The First 12-24 Hours follow the diet below: FRUIT JUICES: Apple, grape juice, clear fruit drinks, and electrolyte replacement drinks. BEVERAGES: Soft drinks without caffeine; mineral water (plain or flavored), decaffeinated tea and coffee. SOUPS: Clear broth, consomm and bouillon DESSERTS: Plain gelatin, popsicles and fruit juice bars. As you feel better, you may add 6-8 ounces of yogurt per day. During The Next 24 Hours you may add the following to the above: Hot cereal, plain toast, bread, rolls, crackers Plain noodles, rice, mashed potatoes, chicken noodle or rice soup Unsweetened canned fruit (avoid pineapple), bananas Limit caffeine and chocolate. No spices or seasonings except salt. During The Next 24 Hours Gradually resume a normal diet, as you feel better and your symptoms lessen. Follow Up with your doctor as advised if you are not improving over the next 2-3 days. Get Prompt Medical Attention if any of the following occur: Constant right-sided lower abdominal pain or increasing general abdominal pain Continued vomiting (unable to keep liquids down) for 24 hours Frequent diarrhea (more than 5 times a day); blood (red or black color) or mucus in diarrhea Reduced urine output or extreme thirst Weakness, dizziness or fainting Unusually drowsy or confused Fever of 100.4F (38C) oral or higher, not better with fever medication Yellow color of the eyes or skin Viral Gastroenteritis (6Yr-Adult) Gastroenteritis is another name for thestomach flu.It is most often caused by a virus that affects the stomach and intestinal tract. Symptoms include stomach cramping and fever, vomiting and/or diarrhea, and can last from 2 to 7 days. The danger from repeated vomiting or diarrhea is dehydration. This is the loss of too much water and minerals from the body. When this occurs, body fluids must be replaced. Antibiotics are not effective for this illness, but simple home treatment will be helpful. Home Care If symptoms are severe, rest at home for the next 24 hours. Avoid tobacco, caffeine, and alcohol use, which can worsen symptoms. Acetaminophen (Tylenol) or ibuprofen (Motrin, Advil) may be usedfor fever or pain unless another medication was prescribed. NOTE: If you have chronic liver or kidney disease or ever had a stomach ulcer or GI bleeding, talk with your doctor before using these medicines. Aspirin should never be used in anyone under 18 years of age who is ill with a fever. It may cause severe liver damage. If medicines for diarrhea or vomiting were prescribed, be sure they are takenonly as directed. If vomiting, drink small amounts of clear fluids (such as water, sports drinks, clear sodas) at frequent intervals to prevent dehydration. Start with 1 to 2 tablespoons every 10 minutes. Once vomiting stops, follow these guidelines: During The First 12 To 24 Hours follow the diet below: Beverages: Sport drinks like Gatorade, soft drinks without caffeine; mane young, mineral water (plain or flavored), decaffeinated tea and coffee. Soups: Clear broth, consomm and bouillon Desserts: Plain gelatin (Jell-O), Popsicles and fruit juice bars. During The Next 24 Hours you may add the following to the above: Hot cereal, plain toast, bread, rolls, crackers Plain noodles, rice, mashed potatoes, chicken noodle or rice soup Unsweetened canned fruit (avoid pineapple), bananas Limit fat intake to less than 15 grams per day by avoiding margarine, butter, oils, mayonnaise, sauces, gravies, fried foods, peanut butter, meat, poultry, and fish. Limit fiber; avoid raw or cooked vegetables, fresh fruits (except bananas), and bran cereals. Limit caffeine and chocolate. Do not use spices or seasonings except salt. During The Next 24 Hours The patient can gradually resume a normal diet as symptoms lessen. Preventing Spread Hand washing with soap and water is the best way to prevent the spread of viruses. Caregivers should wash their hands before andafter touching the sick person. The sick person, as well as everyone in the family,should wash their hands after using the toilet and before meals. Clean the toilet after each use. People with diarrhea should not prepare food for others. If you are preparing your own foods, wash your hands before and after. Follow Up with your doctor as advised. Call your doctor if you are not improving over the next 2 to 3 days. If a stool (diarrhea) sample was taken, you may call in 2 days (or as directed) for the results. Get Prompt Medical Attention if any of the following occur: Increasing abdominal pain Continued vomiting (unable to keep liquids down) Frequent diarrhea (more than 5 times a day) Blood in vomit or stool (black or red color) Dark urine, reduced urine output, or extreme thirst Weakness, dizziness, fainting Drowsiness, confusion, stiff neck, or seizure Fever of 100.4F (38C) oral or higher, not better with fever medication New rash Clear Liquid Diet Clear liquids are any liquid that you can see through as well as those that are very easy to digest. This is used while the body is recovering from irritation or infection of the stomach or intestinal tract. It may also be used before special procedures or surgery. This diet is to be used no more than three days. You may include the following items. Adults Adults should drink a total of 23 quarts of liquid per day. It may be easier to drink small frequent servings rather than a few large ones. Liquids can include: Fruit juices.Strained orange juice or lemonade (no pulp), apple, grape and cranberry juice, clear fruit drinks, sports drinks Beverages.Sport drinks, sodas, mineral water (plain or flavored), tea, black coffee, liquid gelatin (add twice the recommended amount of water) Soups.Clear broth, consomm, bouillon Desserts.Plain gelatin, popsicles, fruit juice bars Children Over 2 years old The following liquids are acceptable for children over age 2: Fruit juices.Strained orange juice or lemonade (no pulp), apple, grape and cranberry juice, clear fruit drinks Beverages. Sports drinks, sodas, mineral water (plain or flavored), tea, liquid gelatin (add twice the recommended amount of water) Soups. Clear broth, consomm, bouillon Desserts. Plain gelatin, popsicles, fruit juice bars Children under 2 years old Oral rehydration fluids such are available at drug stores and most grocery stores without a prescription. [place] Diet A bland diet is used for patients with an upset stomach. It consists of foods that are mild and easy to digest. It is better to eat small frequent meals rather than three large meals a day. BEVERAGES OK: Fruit juices, non-caffeinated teas and coffee, non-carbonated milan AVOID: Carbonated beverage, caffeinated tea and coffee, all alcoholic beverages BREAD OK: Refined white, wheat or rye bread, shamir or soda crackers, Aida toast, plain rolls, bagels AVOID: Whole-grain bread CEREAL OK: Refined cereals: cooked or ready to eat AVOID: Whole grain cereals and granola, or those containing bran, seeds or nuts DESSERTS OK: Peanut butter and all others except those to "avoid" AVOID: Chocolate, cocoa, coconut, popcorn, nuts, seeds, jam, marmalade FRUITS OK: Canned, cooked, frozen or fresh fruits without seeds or tough skin AVOID: Olives, skin and seeds of fruit MEATS OK: All fresh or preserved meat, fish and fowl AVOID: Any that are prepared with those spices to "avoid" CHEESE & EGGS OK: Eggs, cottage cheese, cream cheese, other cheeses AVOID: All cheeses made with those spices to "avoid" POTATOES & PASTA OK: Potato, rice, macaroni, noodles, spaghetti AVOID: None SOUPS OK: All soups without heavy seasoning AVOID: Soups made with those spices to "avoid" VEGETABLES OK: Canned, cooked, fresh or frozen mildly flavored vegetables without seeds, skins or coarse fiber AVOID: Vegetables prepared with those spices to "avoid"; skin and seeds of vegetables and those with coarse fiber SPICES OK: Salt, lemon and [place] juice, vinegar, all extracts, esperanza, cinnamon, thyme, mace, allspice, paprika AVOID: Shiloh powder, cloves, pepper, seed spices, garlic, gravy pickles, highly seasoned salad dressings Clear Liquid Diet Clear liquids are any liquid that you can see through as well as those that are very easy to digest. This is used while the body is recovering from irritation or infection of the stomach or intestinal tract. It may also be used before special procedures or surgery. This diet is to be used no more than three days. You may include the following items. Adults Adults should drink a total of 23 quarts of liquid per day. It may be easier to drink small frequent servings rather than a few large ones. Liquids can include: Fruit juices.Strained orange juice or lemonade (no pulp), apple, grape and cranberry juice, clear fruit drinks, sports drinks Beverages.Sport drinks, sodas, mineral water (plain or flavored), tea, black coffee, liquid gelatin (add twice the recommended amount of water) Soups.Clear broth, consomm, bouillon Desserts.Plain gelatin, popsicles, fruit juice bars Children Over 2 years old The following liquids are acceptable for children over age 2: Fruit juices.Strained orange juice or lemonade (no pulp), apple, grape and cranberry juice, clear fruit drinks Beverages. Sports drinks, sodas, mineral water (plain or flavored), tea, liquid gelatin (add twice the recommended amount of water) Soups. Clear broth, consomm, bouillon Desserts. Plain gelatin, popsicles, fruit juice bars Children under 2 years old Oral rehydration fluids such are available at drug stores and most grocery stores without a prescription. Ondansetron Oral disintegrating tablet What is this medicine? ONDANSETRON (on KOKI se norma) is used to treat nausea and vomiting caused by chemotherapy. It is also used to prevent or treat nausea and vomiting after surgery. How should I use this medicine? These tablets are made to dissolve in the mouth. Do not try to push the tablet through the foil backing. With dry hands, peel away the foil backing and gently remove the tablet. Place the tablet in the mouth and allow it to dissolve, then swallow. While you may take these tablets with water, it is not necessary to do so. Talk to your [employer] regarding the use of this medicine in children. Special care may be needed. What side effects may I notice from receiving this medicine? Side effects that you should report to your doctor or health before and after school daycare worker as soon as possible: allergic reactions like skin rash, itching or hives, swelling of the face, lips, or tongue breathing problems dizziness fast or irregular heartbeat feeling faint or lightheaded, falls fever and chills swelling of the hands and feet tightness in the chest Side effects that usually do not require medical attention (report to your doctor or health before and after school daycare worker if they continue or are bothersome): constipation or diarrhea headache What may interact with this medicine? Do not take this medicine with any of the following medications: -apomorphine -cisapride -dofetilide -dronedarone -pimozide -thioridazine -ziprasidone This medicine may also interact with the following medications: -carbamazepine -phenytoin -rifampicin -tramadol -other medicines that prolong the QT interval (cause an abnormal heart rhythm) What if I miss a dose? If you miss a dose, take it as soon as you can. If it is almost time for your next dose, take only that dose. Do not take double or extra doses. Where should I keep my medicine? Keep out of the reach of children. Store between 2 and 30 degrees C (36 and 86 degrees F). Throw away any unused medicine after the expiration date. What should I tell my health care provider before I take this medicine? They need to know if you have any of these conditions: heart disease history of irregular heartbeat liver disease low levels of magnesium or potassium in the blood an unusual or allergic reaction to ondansetron, granisetron, other medicines, foods, dyes, or preservatives or trying to get breast-feeding What should I watch for while using this medicine? Check with your doctor or health before and after school daycare worker as soon as you can if you have any sign of an allergic reaction. You have been given the following additional information: Vomiting (6Y-Adult) Gastroenteritis, Viral (6Y-Adult) Diet, Clear Liquid Diet, [place] (Adult) Diet, Clear Liquid Ondansetron Oral disintegrating tablet (Electronically signed by Merry Nash A.R.N.P. 08/27/2016 21:33)
--- NOTE | 2016-09-04 09:19 | ED MAR SUMMARY ---
..... Medication Administration Record [facility] [address] [place] [address] Patient: TERESA YOU Visit ID: [id number] 76y, F Weight: 124.7 kg Height/Length: 67.5 in BMI: 42.4 ALLERGIES: Sulfa Antibiotics Start 16:55 08/27/2016 Lachelle Fang R.N., Stop 18:13 08/27/2016 Lachelle Fang R.N. Medication Administered: IV NS (SALINE), Dose: IV Fluids, Rate: 1000 mL/hr, Dispensed: 1000 mL bag, Site: #1 left hand. Medication Ordered: IV NS : initial bolus 1000 mL (1000 mL/hr), then none - (NOW). Given 16:55 08/27/2016 Lachelle Fang R.N. Medication Administered: ZOFRAN [IVP] (ONDANSETRON HCL), Dose: 4 mg IVP over 2 minute(s), Site: #1 left hand. Medication Ordered: Zofran IV 4 mg (NOW).
--- NOTE | 2016-09-04 09:19 | ED MED RECONCILIATION SUMMARY ---
Patient: TERESA YOU Medication Reconciliation Report [facility] VisitID: [id number] [address] [place] [address] 76y, F Registration Date/Time: 08/27/2016 Weight: 124.7 kg Height/Length: 60 in. BMI: 42.4 ALLERGIES: Sulfa Antibiotics The patient's Home Medications are listed below: THE FOLLOWING MEDICATIONS NEED TO BE RECONCILED: Amiodarone HCL Oral 200 mg, daily Atorvastatin Calcium Oral 10 mg, 2x a day [id number] Oral 1000 mcg, Daily Docusate Sodium Oral (250 mg) 1 capsule, daily Donepezil HCl Oral 10mg, Daily Folic Acid Oral 1 mg, daily LORazepam Oral 0.5 mg, daily Metoprolol Tartrate Oral 25 mg, Daily, 1/2 tab daily Multi Complete Oral 1 tab, Daily, MVI D3 NIFEdipine Oral 30 mg, daily OLANZapine Oral 2.5 mg, daily Oxycodone-Acetaminophen Oral 10/325 mg, two tabs every 4 hours Ranexa Oral 500mg, two times a day Senna Oral, daily Sertraline HCl Oral 50 mg, daily Symbicort Inhalation (160-4.5 mcg/act) 2 puff, two times a day Warfarin Sodium Oral 4 mg, tablets, 1.5 tab on Tab Wednesday1.5 Tab Tab 1.5 Tab Tab Tab Wednesday The source(s) of the original Home Medication information: Not obtained. The following Medications were given to the patient in the Emergency Department: IV NS IV Fluids bolus 0, then 1000 mL/hr, administered: 08/27/2016 4:55:00 PM Zofran [IVP] IVP 4 mg, administered: 08/27/2016 4:55:00 PM The following Medications were prescribed to the patient: Zofran 4 mg: Take 1 orally every six hours as needed for nausea/vomiting. Dispense ten (10). No refills. Substitution is permissible. -- Merry Nash A.R.N.P.
--- NOTE | 2016-09-04 09:19 | ED MAR SUMMARY ---
..... Medication Administration Record [facility] [address] [place] [address] Patient: TERESA YOU Visit ID: [id number] 76y, F Weight: 124.7 kg Height/Length: 67.5 in BMI: 42.4 ALLERGIES: Sulfa Antibiotics Start 16:55 08/27/2016 Lachelle Fang R.N., Stop 18:13 08/27/2016 Lachelle Fang R.N. Medication Administered: IV NS (SALINE), Dose: IV Fluids, Rate: 1000 mL/hr, Dispensed: 1000 mL bag, Site: #1 left hand. Medication Ordered: IV NS : initial bolus 1000 mL (1000 mL/hr), then none - (NOW). Given 16:55 08/27/2016 Lachelle Fang R.N. Medication Administered: ZOFRAN [IVP] (ONDANSETRON HCL), Dose: 4 mg IVP over 2 minute(s), Site: #1 left hand. Medication Ordered: Zofran IV 4 mg (NOW).
--- NOTE | 2016-09-04 09:19 | ED MED RECONCILIATION SUMMARY ---
Patient: TERESA YOU Medication Reconciliation Report [facility] VisitID: [id number] [address] [place] [address] 76y, F Registration Date/Time: 08/27/2016 Weight: 124.7 kg Height/Length: 60 in. BMI: 42.4 ALLERGIES: Sulfa Antibiotics The patient's Home Medications are listed below: THE FOLLOWING MEDICATIONS NEED TO BE RECONCILED: Amiodarone HCL Oral 200 mg, daily Atorvastatin Calcium Oral 10 mg, 2x a day [id number] Oral 1000 mcg, Daily Docusate Sodium Oral (250 mg) 1 capsule, daily Donepezil HCl Oral 10mg, Daily Folic Acid Oral 1 mg, daily LORazepam Oral 0.5 mg, daily Metoprolol Tartrate Oral 25 mg, Daily, 1/2 tab daily Multi Complete Oral 1 tab, Daily, MVI D3 NIFEdipine Oral 30 mg, daily OLANZapine Oral 2.5 mg, daily Oxycodone-Acetaminophen Oral 10/325 mg, two tabs every 4 hours Ranexa Oral 500mg, two times a day Senna Oral, daily Sertraline HCl Oral 50 mg, daily Symbicort Inhalation (160-4.5 mcg/act) 2 puff, two times a day Warfarin Sodium Oral 4 mg, tablets, 1.5 tab on Tab Wednesday1.5 Tab Tab 1.5 Tab Tab Tab Wednesday The source(s) of the original Home Medication information: Not obtained. The following Medications were given to the patient in the Emergency Department: IV NS IV Fluids bolus 0, then 1000 mL/hr, administered: 08/27/2016 4:55:00 PM Zofran [IVP] IVP 4 mg, administered: 08/27/2016 4:55:00 PM The following Medications were prescribed to the patient: Zofran 4 mg: Take 1 orally every six hours as needed for nausea/vomiting. Dispense ten (10). No refills. Substitution is permissible. -- Merry Nash A.R.N.P.
== END 2016-08-27 18:15 | disposition home or self-care (01) ==
LOC: ED SRH 16:14
DX: R11.14 Bilious vomiting (principal); R11.2 Nausea with vomiting, unspecified; K21.9 Gastro-esophageal reflux disease without esophagitis; Z79.899 Other long term (current) drug therapy; Z79.01 Long term (current) use of anticoagulants; Z88.2 Allergy status to sulfonamides
CPT/HCPCS: 90100; 92235; 92530; 95059